=== PATIENT | female | born 1935 | race Caucasian/White ===

== ENCOUNTER 2020-03-11 16:29 | Emergency (ER) | payer MEDICARE, OTHER, SELFPAY ==
[2020-03-11 17:45] VITALS: BP 139/68; PULSE 78; RESP 16; TEMP 37.1; O2SAT 100; BMI 23.0
--- NOTE | 2020-03-11 17:55 | ED.ANIMALBIT ---
HPI - Animal Bite General Chief Complaint: Animal Bite Stated Complaint: cat scratch Time Seen by Provider: 03/11/20 17:55 Source: patient Mode of arrival: ambulatory History of Present Illness HPI narrative: patient presents with multiple wounds the left hand from a cat bite and scratches. Her cat and her daughter's cat were not getting along they got into a fight, and patient was injured while the animals. She has multiple puncture wounds to the left hand forearm and a 0.5 cm laceration to left forearm unknown if it was caused from a bite or a cat scratch. Both cats vaccinated, patient does not report any other injuries. MD complaint: animal bite Onset (ago): hour(s) Animal: cat Description of animal: household pet Mechanism: bite and scratch Location - Extremities: left: arm and hand Severity scale (1-10): 2 Context: animals fighting Associated symptoms: none Treatments prior to arrival: irrigation Related Data Patient tetanus UTD: No Previous Rx's Medication Instructions Recorded doxycycline monohydrate 100 mg PO BID 10 Days #20 cap 03/11/20 Allergies Allergy/AdvReac Type Severity Reaction Status Date / Time amoxicillin [From Augmentin] Allergy Flushing Verified 03/11/20 17:54 clavulanic acid Allergy Flushing Verified 03/11/20 17:54 [From Augmentin] Sulfa (Sulfonamide Allergy Unknown Verified 03/11/20 17:54 Antibiotics) Review of Systems Review of Systems: Yes all other systems are reviewed and are negative Constitutional: Constitutional: Reports no additional constitutional complaints Musculoskeletal: Musculoskeletal: Reports no additional musculoskeletal complaints Integumentary/Breasts: Skin/Breast: Reports wounds Comments: 0.5 cm superficial laceration from a bite or scratch on the left forearm, multiple puncture wounds to the left forearm and hand Neurologic: Reports system reviewed and no additional complaints, except as documented Hematologic/Lymphatic: Hematologic/Lymphatic: Reports no additional hematologic/lymphatic complaints PMFSH Past Medical History Attestation statement: The following information was validated with the patient. 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 High cholesterol Social History Social History Advance Directives: No Advance Directives Information Provided: No Physical Exam Vital Signs and I&O and Narrative: Vital Signs and I&O: Vital Signs Temp 98.7 F 03/11/20 17:45 Pulse 78 03/11/20 17:45 Resp 16 03/11/20 17:45 BP 139/68 03/11/20 17:45 Pulse Ox 100 03/11/20 17:45 Intake & Output 03/10/20 03/11/20 03/11/20 18:59 06:59 18:59 Weight 60.781 kg Body Mass Index 23.0 Const: General: cooperative, healthy appearing, comfortable, no acute distress and well developed Nutritional Appearance: average body habitus Orientation/consciousness: patient oriented x3 Limitations: no limitations HENMT: Head: Yes normal to inspection Ears: hearing grossly normal bilaterally Eyes: General: appearance normal, both eyes and all related structures Neck: Neck: Yes normal visual inspection Resp: Effort & Inspection: normal respiratory effort and able to speak in complete sentences Cardio: Rate: regular rate Rhythm: regular rhythm Skin: Wounds: wounds noted ( 0.5 cm laceration to the left forearm, multiple puncture wounds from bite) Neuro: General: patient oriented x3 Cognition (Neuro): normal cognition Motor exam (neuro): 5/5 motor strength present throughout Extrem: General: Yes normal to inspection and Yes full ROM Right upper extremity: normal to inspection and full ROM Left upper extremity: full ROM and normal capillary refill Right lower extremity: normal to inspection Left lower extremity: normal to inspection Psych: Appearance: grossly normal Mental Status: mental status grossly normal Course Course Hospital Course: plan is to wash wounds and apply singular Steri-Strips to the laceration. Cleaned with Betadine and normal saline. Patient tolerated procedure well. Patient is allergic to Augmentin, plan is to give doxycycline for 10 days, patient is aware of the photosensitivity with doxycycline. Patient verbalized understanding of and agrees to plan of care discharge home. Discharge Plan Discharge Clinical Impression: Bite by animal, Laceration Cat bite Qualifiers: Encounter type: initial encounter Qualified Code(s): W55.01XA - Bitten by cat, initial encounter Patient Disposition: Home, Self-Care Instructions: Animal Bite (ED), Laceration (ED), Acute Wounds (ED) Additional Instructions: please follow-up with primary care physician as needed. Return to the emergency department for any new, concerning, worsening symptoms. Prescriptions: New doxycycline monohydrate 100 mg capsule 100 mg PO BID 10 Days Qty: 20 RF: 0
== END 2020-03-11 20:35 | disposition home or self-care (01) ==
PROVIDERS: Emergency Provider Emergency Medicine Emergency Medical Services
DX: S51.852A Open bite of left forearm, initial encounter (principal); S61.452A Open bite of left hand, initial encounter; W55.01XA Bitten by cat, initial encounter; Y93.9 Activity, unspecified; Y92.019 Unspecified place in single-family (private) house as the place of occurrence of the external cause; Y99.9 Unspecified external cause status
CPT/HCPCS: 90471; 99284

== ENCOUNTER 2021-04-15 12:58 | Emergency (ER) | payer MEDICARE, OTHER, SELFPAY ==
--- NOTE | ~2021-04-15 | XR_ITS ---
EXAMINATION: XR FINGER, LEFT CLINICAL INFORMATION: Cat bite to the middle finger COMPARISON: None TECHNIQUE: 3 views of the left hand third digit. FINDINGS: No fracture or dislocation. Alignment is anatomic. Mild joint space narrowing throughout the interphalangeal joints. No acute erosion. The soft tissues are unremarkable. No foreign body. XR/XR finger LT min 2V IMPRESSION: No acute abnormality. Mild degenerative changes throughout the interphalangeal joints.
[2021-04-15 13:01] VITALS: BP 143/62; PULSE 72; RESP 18; TEMP 36.1; O2SAT 96; BMI 23.1
--- NOTE | 2021-04-15 13:53 | ED_ITS ---
HPI - Animal Bite General Chief Complaint: Animal Bite Stated Complaint: cat bite Time Seen by Provider: 04/15/21 13:48 Source: patient and family Mode of arrival: ambulatory Limitations: no limitations History of Present Illness MD complaint: animal bite Onset (ago): minute(s) (Prior to arrival) Animal: cat Description of animal: household pet Mechanism: bite Location - Extremities: left: hand (Middle finger) Pain description: other (Patient denies any pain) Context: other (The neighbor's cat came over and tried to attack the patient's Cat and the patient tried to intervene and her Cat bit her) Associated symptoms: none Treatments prior to arrival: irrigation Related Data Patient tetanus UTD: Yes (She received on 03/11/2020) Previous Rx's Medication Instructions Recorded doxycycline monohydrate 100 mg 100 mg PO BID 10 Days #20 cap 03/11/20 capsule doxycycline hyclate 100 mg tablet 100 mg PO BID 10 Days #20 tab 04/15/21 metronidazole 500 mg tablet 500 mg PO TID 10 Days #30 tab 04/15/21 Allergies Allergy/AdvReac Type Severity Reaction Status Date / Time amoxicillin [From Augmentin] Allergy Flushing Verified 03/11/20 17:54 clavulanic acid Allergy Flushing Verified 03/11/20 17:54 [From Augmentin] Sulfa (Sulfonamide Allergy Unknown Verified 03/11/20 17:54 Antibiotics) Review of Systems Review of Systems: Constitutional : No Fever, No Chills, Cardiovascular : No Chest Pain, No SOB Respiratory : No Dyspnea Gastrointestinal : No abdominal pain Musculoskeletal : No Joint Swelling Skin : positive puncture wound to left middle finger, no skin laceration, No Foreign bodies, No rash, No surrounding erythema Neuro : No Weakness, No Numbness/tingling Psych : No SI/HI/thoughts of self injury Yes all other systems are reviewed and are negative PMFSH Past Medical History Attestation statement: The following information was validated with the patient. 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 Blood pressure normal Heart rate normal. Respiration rate normal. Temperature nor mal. Oxygen saturation normal. Appearance: Alert. Oriented X3. No acute distress. Head: Normal external exam. Normocephalic. Atraumatic. Eyes: PERRLA. EOMI. Conjunctiva and sclera normal. Eyelids normal. ENT: Pharynx normal. Uvula midline. Moist mucous membranes. Neck: Normal inspection. Neck supple. FROM. CVS: Normal heart rate and rhythm. Respiratory: No respiratory distress. Painless inspiration. Skin: Skin warm and dry. Normal skin color. Normal skin turgor. To left middle finger at the mid aspect patient has 1 puncture wound to the dorsal and 1 puncture wound to the palmar aspect no surrounding erythema/streaking/induration/fluctuance or foreign bodies noted. Patient has full range of motion of all fingers/hand and wrist not consistent with ten osynovitis. No signs of infection at this time. Otherwise no additional rashes/lesions/lacerations noted. Extremities: Extremities exhibit normal range of motion. Extremities nontender. Neuro: Oriented X 3. No motor deficit. No sensory deficit. Reflexes normal. Normal steady gait. No focal neuro deficits noted. Vascular: + radial pulses Normal cap refill. No cyanosis noted to upper extr emity nails Course Course Course Narrative: 85-year-old female presenting to the ED after she was bit by her cat while the neighbor's cat try to attack her cat. She is up-to-date on her tetanus she received it on her last visit here on 03/11/2020. Will obtain an x-ray to evaluate for possible foreign bodies if negative will DC home with antibiotics she is allergic to amoxicillin/Augmentin therefore will place her on doxy and Flagyl and instructions return if any new or worsening symptoms follow- up with primary care provider. Patient understands agrees with this plan. MDM - Animal Bite Medical Records Attestation: I reviewed the patient's medical records. Imaging Data Left middle finger x-ray: Attestation: I personally reviewed and interpreted this imaging study as follows: Radiologist's impression: FINDINGS: No fracture or dislocation. Alignment is anatomic. Mild joint space narrowing throughout the interphalangeal joints. No acute erosion. The soft tissues are unremarkable. No foreign body.? XR/XR finger LT min 2V IMPRESSION: No acute abnormality. 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
--- NOTE | 2021-04-15 14:43 | PC.NURSE ---
this rn faxed to [facility] at patient request.
== END 2021-04-15 14:44 | disposition home or self-care (01) ==
PROVIDERS: Emergency Provider Emergency Medicine
DX: S61.452A Open bite of left hand, initial encounter (principal); W55.01XA Bitten by cat, initial encounter; Y93.89 Activity, other specified; Y92.9 Unspecified place or not applicable; Y99.9 Unspecified external cause status
CPT/HCPCS: 73140; 99283

== ENCOUNTER 2022-10-18 11:06 | Emergency (ER) | payer MEDICARE, OTHER, SELFPAY ==
--- NOTE | ~2022-10-18 | CT_ITS ---
EXAMINATION: CT THORACIC SPINE WITHOUT CONTRAST CT LUMBAR SPINE WITHOUT CONTRAST CLINICAL INFORMATION: Status post fall. History of recent kyphoplasty. COMPARISON: No relevant prior imaging. TECHNIQUE: [employer] images were obtained. CT imaging of the thoracic and lumbar spine was performed without contrast. Data was reformatted into multiplanar images at the acquisition workstation. FINDINGS: There are compression deformities of the T12 and L1 vertebral bodies. Specifically at T12 there is impaction of the upper endplate resulting in 40% vertebral height loss centrally. At L1 there is impaction of the upper and lower endplates resulting in 50% vertebral height loss centrally. There is buckling with retropulsion of the posterior cortex at each of these 3 levels causing indentation of the ventral thecal sac. There is bone cement material within the vertebral bodies at each of these levels consistent with the clinical history of a recent kyphoplasty. Otherwise no evidence of acute fracture elsewhere within the onmnu-nh-gvhi of this examination. There is a slight anterolisthesis of L4 on L5 and L5 on S1 related to advanced facet degenerative changes at each of these 2 levels. Alignment is otherwise grossly maintained in the sagittal dimension. Canal patency is not well assessed on this examination due to inherent limitations of CT without intrathecal contrast. There is at least moderate canal stenosis at the level of T12. Otherwise no canal compromise within the thoracic spine. Bulging disc in conjunction with facet degenerative change causes at least moderate canal stenosis at levels of L3-L4 and L4-L5. Grossly no evidence of foraminal nerve root compression. Limited visualization of intrathoracic anatomy reveals no abnormal finding. There is scattered atheromatous calcification involving abdominal aorta and iliac vessels. Psoas and paraspinal muscle groups are grossly symmetric. Of note there is a spinal stimulator in place with electrode traversing the right S3 foramen. CT/CT thoracic spine wo IV con IMPRESSION: There are compression deformities of the T12 and L1 vertebral bodies that appear to have been treated with kyphoplasty. Otherwise no evidence of acute fracture. Canal patency is not well assessed on this examination due to inherent limitations of CT without intrathecal contrast. There is at least moderate canal stenosis at T12, L3-L4, and L4-L5 related to multiple factors as described above. If there are clinical symptoms of compressive myelopathy then a dedicated lumbar spine MRI can be obtained for better anatomic characterization of the cord and canal. There is multilevel degenerative spondylosis of the lumbar spine with slight anterolisthesis of L4 on L5 and L5 on S1 related to facet degenerative changes at each of these 2 levels.
--- NOTE | ~2022-10-18 | CT_ITS ---
EXAMINATION: CT CERVICAL SPINE WITHOUT CONTRAST CLINICAL INFORMATION: Full COMPARISON: None available. TECHNIQUE: CT cervical spine with coronal and sagittal reconstructions This CT examination was performed using dose optimization techniques as appropriate, variously including the following: *Automated exposure control *Adjustment of mA and/or kV according to patient size (this includes techniques or standardized protocols for targeted exams where dose is matched to indication/reason for exam; i.e. extremities or head) *Use of iterative reconstruction technique DLP: 260 mGy-cm FINDINGS: No abnormal prevertebral soft tissue swelling is seen. The paraspinal muscle fat planes are maintained. No acute cervical spine fracture is noted. There is degenerative narrowing of the disc spaces C4-C7. There is some mild spurring of the joints of [place] causing some anterior neural foraminal encroachment C4-C7. Pterygoid plates intact. Visualized paranasal sinuses and mastoid air cells unremarkable. There is some mild flattening with irregularity of the temporomandibular joints bilaterally without significant joint space narrowing. No apical lung lesion identified. CT/CT cervical spine wo IV con IMPRESSION: Cervical spondylosis without acute fracture. Fleischner guidelines were followed.
--- NOTE | ~2022-10-18 | CT_ITS ---
EXAMINATION: CT HEAD WITHOUT CONTRAST CLINICAL INFORMATION: Fall on anticoagulant COMPARISON: None available. TECHNIQUE: Contiguous axial imaging was performed from the skull base to vertex without intravenous administration of contrast. This CT examination was performed using dose optimization techniques as appropriate, variously including the following: *Automated exposure control *Adjustment of mA and/or kV according to patient size (this includes techniques or standardized protocols for targeted exams where dose is matched to indication/reason for exam; i.e. extremities or head) *Use of iterative reconstruction technique DLP: 640 mGy-cm FINDINGS: No intracranial hemorrhage is identified. No significant mass effect or midline structure shift is seen. No abnormal extra-axial fluid collection is noted. There is prominence of ventricles, sulci, and cisterns consistent with generalized atrophy. There is some periventricular white matter low density seen consistent with microangiopathy. There are small lacunar infarcts seen involving the anterior limbs of both internal capsules. There is a region of diminished density within the óscar which may represent previous infarct. There appears be gas about the anterior aspect of the globe bilaterally which may represent postsurgical change of intraorbital temporal. Pterygoid plates intact. Degenerative change of the right temporomandibular joint. Visualized paranasal sinuses and mastoid air cells unremarkable. CT/CT head/brain wo IV con IMPRESSION: No acute intracranial pathology. Findings consistent with microangiopathy. Question old óscar infarct.
--- NOTE | ~2022-10-18 | CT_ITS ---
EXAMINATION: CT THORACIC SPINE WITHOUT CONTRAST CT LUMBAR SPINE WITHOUT CONTRAST CLINICAL INFORMATION: Status post fall. History of recent kyphoplasty. COMPARISON: No relevant prior imaging. TECHNIQUE: Vault Clerk images were obtained. CT imaging of the thoracic and lumbar spine was performed without contrast. Data was reformatted into multiplanar images at the acquisition workstation. FINDINGS: There are compression deformities of the T12 and L1 vertebral bodies. Specifically at T12 there is impaction of the upper endplate resulting in 40% vertebral height loss centrally. At L1 there is impaction of the upper and lower endplates resulting in 50% vertebral height loss centrally. There is buckling with retropulsion of the posterior cortex at each of these 3 levels causing indentation of the ventral thecal sac. There is bone cement material within the vertebral bodies at each of these levels consistent with the clinical history of a recent kyphoplasty. Otherwise no evidence of acute fracture elsewhere within the [id number] of this examination. There is a slight anterolisthesis of L4 on L5 and L5 on S1 related to advanced facet degenerative changes at each of these 2 levels. Alignment is otherwise grossly maintained in the sagittal dimension. Canal patency is not well assessed on this examination due to inherent limitations of CT without intrathecal contrast. There is at least moderate canal stenosis at the level of T12. Otherwise no canal compromise within the thoracic spine. Bulging disc in conjunction with facet degenerative change causes at least moderate canal stenosis at levels of L3-L4 and L4-L5. Grossly no evidence of foraminal nerve root compression. Limited visualization of intrathoracic anatomy reveals no abnormal finding. There is scattered atheromatous calcification involving abdominal aorta and iliac vessels. Psoas and paraspinal muscle groups are grossly symmetric. Of note there is a spinal stimulator in place with electrode traversing the right S3 foramen. CT/CT lumbar spine wo IV con IMPRESSION: There are compression deformities of the T12 and L1 vertebral bodies that appear to have been treated with kyphoplasty. Otherwise no evidence of acute fracture. Canal patency is not well assessed on this examination due to inherent limitations of CT without intrathecal contrast. There is at least moderate canal stenosis at T12, L3-L4, and L4-L5 related to multiple factors as described above. If there are clinical symptoms of compressive myelopathy then a dedicated lumbar spine MRI can be obtained for better anatomic characterization of the cord and canal. There is multilevel degenerative spondylosis of the lumbar spine with slight anterolisthesis of L4 on L5 and L5 on S1 related to facet degenerative changes at each of these 2 levels.
[2022-10-18 12:03] VITALS: BP 139/65; PULSE 81; RESP 18; TEMP 36.6; O2SAT 97; BMI 21.0
--- NOTE | 2022-10-18 12:05 | ED.FALL ---
HPI - Fall General Chief Complaint: Back Pain/Injury <SORAYA Joseph - Last Filed: 10/18/22 12:11> Stated Complaint: Back Pain S/P Fall 10/18/22 <SORAYA Joseph - Last Filed: 10/18/22 12:11> Time Seen by Provider: 10/18/22 14:55 <SORAYA Joseph - Last Filed: 10/18/22 12:11> Source: patient <Kristin Gambino NP - Last Filed: 10/18/22 17:17> Mode of arrival: ambulatory <Kristin Gambino NP - Last Filed: 10/18/22 17:17> History of Present Illness HPI Narrative: This is an 87-year-old female who has a history DVTs on Eliquis, mild memory loss who presents to the emergency room with concern for lower back pain. Per patient she had a slip and fall this morning out of bed living on her buttocks. Per daughter the patient had a fall 3 weeks ago with subsequent compression fractures requiring kyphoplasty. She has been taking tramadol p.r.n. at home which has been helping her pain. Patient reports now has some worsened pain in her lower back after the fall. There is no radiation of pain. No numbness or tingling or weakness in lower extremities. No numbness in the groin. She does have bladder retention and incontinence at baseline and has to straight cath herself. She has no reports of bowel incontinence or fevers or chills. Patient is ambulatory. Patient unsure if she hit her head. <Kristin Gambino NP - Last Filed: 10/18/22 17:17> Related Data Home Medications: Previous Rx's Medication Instructions Recorded doxycycline monohydrate 100 mg 100 mg PO BID 10 days #20 caps 03/11/20 capsule doxycycline hyclate 100 mg tablet 100 mg PO BID Cat bite 10 days #20 04/15/21 tabs metronidazole 500 mg tablet 500 mg PO TID 10 days #30 tabs 04/15/21 Lactobacillus rhamnosus GG 15 1 cap PO DAILY #20 caps 04/18/21 billion cell sprinkle capsule (Culturelle) clindamycin HCl 300 mg capsule 300 mg PO TID 7 days #21 caps 04/18/21 <SORAYA Joseph - Last Filed: 10/18/22 12:11> Allergies/Adverse Reactions: Allergies Allergy/AdvReac Type Severity Reaction Status Date / Time amoxicillin [From Augmentin] Allergy Flushing Verified 03/11/20 17:54 clavulanic acid Allergy Flushing Verified 03/11/20 17:54 [From Augmentin] Sulfa (Sulfonamide Allergy Unknown Verified 03/11/20 17:54 Antibiotics) <SORAYA Joseph - Last Filed: 10/18/22 12:11> Review of Systems Review of Systems: Yes all other systems are reviewed and are negative <Kristin Gambino NP - Last Filed: 10/18/22 17:17> Constitutional: Constitutional: Reports no additional constitutional complaints, Denies body ache(s), Denies chills, Denies fever(s), Denies headache(s) and Denies weakness <Kristin Gambino NP - Last Filed: 10/18/22 17:17> Eyes: Eyes: Reports no additional eye complaints and Denies change in vision <Kristin Gambino CONSTRUCTION SUPERVISOR/CARPENTER - Last Filed: 10/18/22 17:17> ENT: Reports system reviewed and no additional complaints, except as documented, Denies dizziness, Denies headache(s), Denies nasal congestion, Denies nasal discharge and Denies neck pain <Kristin Gambino NP - Last Filed: 10/18/22 17:17> Cardiovascular: Cardiovascular: Reports no additional cardiovascular complaints, Denies chest pain, Denies leg edema and Denies dyspnea <Kristin Gambino NP - Last Filed: 10/18/22 17:17> Respiratory: Respiratory: Reports no additional respiratory complaints, Denies cough and Denies dyspnea <Kristin Gambino NP - Last Filed: 10/18/22 17:17> Gastrointestinal: Gastrointestinal: Reports no additional gastrointestinal complaints, Denies abdominal pain, Denies diarrhea, Denies nausea and Denies vomiting <Kristin Gambino NP - Last Filed: 10/18/22 17:17> Genitourinary: Genitourinary: Reports no additional female genitourinary complaints and Denies urinary incontinence <Kristin Gambino NP - Last Filed: 10/18/22 17:17> Musculoskeletal: Musculoskeletal: Reports no additional musculoskeletal complaints, Reports back pain, Denies arthralgias, Denies joint swelling, Denies neck pain, Denies numbness and Denies tingling <Kristin Gambino NP - Last Filed: 10/18/22 17:17> Integumentary/Breasts: Skin/Breast: Reports system reviewed and no additional complaints, except as docu and Denies rash <Kristin Gambino NP - Last Filed: 10/18/22 17:17> Neurologic: Reports system reviewed and no additional complaints, except as documented, Denies Abnormal speech present, Denies dizziness, Denies headache(s), Denies numbness, Denies tingling and Denies weakness <Kristin Gambino NP - Last Filed: 10/18/22 17:17> PMFSH Past Medical History Attestation statement: The following information was validated with the patient. <Kristin Gambino NP - Last Filed: 10/18/22 17:17> Source: old records reviewed and nursing notes reviewed <Kristin Gambino NP - Last Filed: 10/18/22 17:17> Medical History: Medical History Blood clot in vein High cholesterol <SORAYA Joseph - Last Filed: 10/18/22 12:11> Social History Social History: Social History Advance Directives: No Advance Directives Information Provided: No <SORAYA Joseph - Last Filed: 10/18/22 12:11> Physical Exam Vital Signs: Vital Signs: Last Vital Signs Temp 97.9 F 10/18/22 12:03 Pulse 81 10/18/22 12:03 Resp 18 10/18/22 12:03 BP 139/65 10/18/22 12:03 Pulse Ox 97 10/18/22 12:03 O2 Del Method Room Air 10/18/22 12:03 BMI result Body Mass Index 21.0 <SORAYA Joseph - Last Filed: 10/18/22 12:11> Vital Signs: Last Vital Signs Temp 97.9 F 10/18/22 12:03 Pulse 81 10/18/22 12:03 Resp 18 10/18/22 12:03 BP 139/65 10/18/22 12:03 Pulse Ox 97 10/18/22 12:03 O2 Del Method Room Air 10/18/22 12:03 BMI result Body Mass Index 21.0 <Kristin Gambino NP - Last Filed: 10/18/22 17:17> Const: General: cooperative, healthy appearing, comfortable and no acute distress <Kristin Gambino CONSTRUCTION SUPERVISOR/CARPENTER - Last Filed: 10/18/22 17:17> Orientation/consciousness: patient oriented x3 <Kristin Gambino CONSTRUCTION SUPERVISOR/CARPENTER - Last Filed: 10/18/22 17:17> Limitations: no limitations <Kristin Gambino CONSTRUCTION SUPERVISOR/CARPENTER - Last Filed: 10/18/22 17:17> HEENT: Head: Yes normal to inspection <Kristin Gambino CONSTRUCTION SUPERVISOR/CARPENTER - Last Filed: 10/18/22 17:17> Ears: hearing grossly normal bilaterally <Kristin Gambino CONSTRUCTION SUPERVISOR/CARPENTER - Last Filed: 10/18/22 17:17> General nose exam: Normal external nose present <Kristin Gambino CONSTRUCTION SUPERVISOR/CARPENTER - Last Filed: 10/18/22 17:17> Face and sinus: Yes normal facial exam <Kristin Gambino CONSTRUCTION SUPERVISOR/CARPENTER - Last Filed: 10/18/22 17:17> Mouth: Normal oral and palatal mucosa present <Kristin Gambino CONSTRUCTION SUPERVISOR/CARPENTER - Last Filed: 10/18/22 17:17> Throat: Yes posterior oropharynx normal <Kristin Gambino CONSTRUCTION SUPERVISOR/CARPENTER - Last Filed: 10/18/22 17:17> Eyes: General: appearance normal, both eyes and all related structures <Kristin Gambino CONSTRUCTION SUPERVISOR/CARPENTER - Last Filed: 10/18/22 17:17> Pupils: Equal, round and reactive pupils present <Kristin Gambino CONSTRUCTION SUPERVISOR/CARPENTER - Last Filed: 10/18/22 17:17> Neck: Neck: Yes normal visual inspection <Kristin Gambino CONSTRUCTION SUPERVISOR/CARPENTER - Last Filed: 10/18/22 17:17> Chest: Chest palpation & inspection: normal inspection of the chest <Kristin Gambino CONSTRUCTION SUPERVISOR/CARPENTER - Last Filed: 10/18/22 17:17> Resp: Effort & Inspection: normal respiratory effort <Kristin Gambino CONSTRUCTION SUPERVISOR/CARPENTER - Last Filed: 10/18/22 17:17> Auscultation: clear to auscultation bilaterally <Kristin Gambino CONSTRUCTION SUPERVISOR/CARPENTER - Last Filed: 10/18/22 17:17> Cardio: Rate: regular rate <Kristin Gambino CONSTRUCTION SUPERVISOR/CARPENTER - Last Filed: 10/18/22 17:17> Rhythm: regular rhythm <Kristin Gambino CONSTRUCTION SUPERVISOR/CARPENTER - Last Filed: 10/18/22 17:17> Peripheral pulses: Peripheral pulses 2+ throughout <Kristin Gambino CONSTRUCTION SUPERVISOR/CARPENTER - Last Filed: 10/18/22 17:17> GI: Inspection: Yes normal to inspection <Kristin Gambino CONSTRUCTION SUPERVISOR/CARPENTER - Last Filed: 10/18/22 17:17> Palpation (GI): Soft to palpation and nontender <Kristin Gambino CONSTRUCTION SUPERVISOR/CARPENTER - Last Filed: 10/18/22 17:17> Auscultation: normal bowel sounds <Kristin Gambino CONSTRUCTION SUPERVISOR/CARPENTER - Last Filed: 10/18/22 17:17> Back/Spine/Pelvis: Other: Mild tenderness the midline lumbar spine with no step-offs or deformities <Kristin Gambino CONSTRUCTION SUPERVISOR/CARPENTER - Last Filed: 10/18/22 17:17> Thoracic/Lumbar Spine: thoracic and lumbar spine normal to inspection <Kristin Gambino CONSTRUCTION SUPERVISOR/CARPENTER - Last Filed: 10/18/22 17:17> Skin: General skin exam: no rashes or lesions noted <Kristin Gambino CONSTRUCTION SUPERVISOR/CARPENTER - Last Filed: 10/18/22 17:17> Neuro: General: patient oriented x3, moves all extremities, no focal motor deficits and normal sensation to monofilament <Kristin Gambino CONSTRUCTION SUPERVISOR/CARPENTER - Last Filed: 10/18/22 17:17> Cranial nerves: Yes CN's II-XII intact bilaterally, Yes Equal, round and reactive pupils present, Yes Bilaterally intact EOM present, Yes Nystagmus not present, Yes Normal facial strength present and Yes Midline tongue present <Kristin Niyahcci, CONSTRUCTION SUPERVISOR/CARPENTER - Last Filed: 10/18/22 17:17> Cognition (Neuro): normal cognition <Kristin Niyahcci, CONSTRUCTION SUPERVISOR/CARPENTER - Last Filed: 10/18/22 17:17> Speech: No Abnormal speech present <Kristin Dongcucci, CONSTRUCTION SUPERVISOR/CARPENTER - Last Filed: 10/18/22 17:17> Gait exam (Neuro): Normal gait present <Kristin Dongcucci, CONSTRUCTION SUPERVISOR/CARPENTER - Last Filed: 10/18/22 17:17> Motor exam (neuro): 5/5 motor strength present throughout <Kristin Pascucci, CONSTRUCTION SUPERVISOR/CARPENTER - Last Filed: 10/18/22 17:17> Sensory Exam: Normal double simultaneous stimulation for sensation <Kristin Niyahcci, CONSTRUCTION SUPERVISOR/CARPENTER - Last Filed: 10/18/22 17:17> Extrem: General: Yes normal to inspection <Kristin Dongmerry, CONSTRUCTION SUPERVISOR/CARPENTER - Last Filed: 10/18/22 17:17> Course Course Course Narrative: RME - 87 y/o female with history of LE DVT on Eliquis presents to the ER from home for evaluation of low back pain s/p unwitnessed fall out of bed this morning. She states she fell when she got out of bed and fell onto her bottom, no LOC or head strike. She had recent kyphoplasty to compression fx in thoracic and lumbar spine in [place] a couple of weeks ago. Reports worsening lumbar pain since the fall. Plan: CT head/c-spine given age and anticoagulation along with thoracic and lumbar spines to assess for additional compression deformitites <SORAYA Joseph - Last Filed: 10/18/22 12:11> Reevaluation(s) Reevaluation #1: [id number] IMPRESSION: There are compression deformities of the T12 and L1 vertebral bodies that appear to have been treated with kyphoplasty. Otherwise no evidence of acute fracture. Canal patency is not well assessed on this examination due to inherent limitations of CT without intrathecal contrast. There is at least moderate canal stenosis at T12, L3-L4, and L4-L5 related to multiple factors as described above. If there are clinical symptoms of compressive myelopathy then a dedicated lumbar spine MRI can be obtained for better anatomic characterization of the cord and canal. There is multilevel degenerative spondylosis of the lumbar spine with slight anterolisthesis of L4 on L5 and L5 on S1 related to facet degenerative changes at each of these 2 levels. -reviewed findings with the patient and family. UA negative for infection. Patient is feeling good pain control with her home tramadol. Able to ambulate. Reviewed worrisome signs and symptoms of when to return to the emergency room. Comfortable plan for discharge home. <Kristin Gambino NP - Last Filed: 10/18/22 17:17> Medications Administered Discontinued Medications Generic Name Dose Route Start Last Admin Trade Name Freq PRN Reason Stop Dose Admin Tramadol HCl 50 mg 10/18/22 15:20 10/18/22 15:41 Tramadol Hcl 50 Mg Tablet PO 10/18/22 15:21 50 mg ONCE ONE Administration <SORAYA Joseph - Last Filed: 10/18/22 12:11> Medications Administered Discontinued Medications Generic Name Dose Route Start Last Admin Trade Name Freq PRN Reason Stop Dose Admin Tramadol HCl 50 mg 10/18/22 15:20 10/18/22 15:41 Tramadol Hcl 50 Mg Tablet PO 10/18/22 15:21 50 mg ONCE ONE Administration <Kristin Gambino NP - Last Filed: 10/18/22 17:17> Medical Decision Making Medical Decision Making [facility] Narrative: 87-year-old female here with lower back pain after mechanical fall this morning. Of note, patient with recent kyphoplasty due to compression fractures. Patient is unsure if she had a hitting of the head or loss of consciousness as she has mild memory loss at baseline. Normal neuro exam Mild tenderness to the lumbar mid spine Patient had CT head, CT cervical spine, CT thoracic spine, CT lumbar spine ordered from triage Will order pain control Daughter is concerned that patient may have urinary tract infection. She does self cath at home. Will obtain UA <Kristin Gambino NP - Last Filed: 10/18/22 17:17> Differential Diagnosis Differential Diagnoses: The differential diagnosis associated with the presentation includes <Kristin Gambino NP - Last Filed: 10/18/22 17:17> Fracture, contusion <Kristin Gambino NP - Last Filed: 10/18/22 17:17> Lab Data [facility] Lab Attestation statement: I reviewed the patient's lab results. <Kristin Gambino NP - Last Filed: 10/18/22 17:17> Labs: Lab Results 10/18/22 Range/Units 16:00 Urine Color Yellow Urine Appearance Clear Urine pH 5.5 (5.0-9.0) Ur Specific [place] 1.025 (1.005-1.025) Urine Protein Negative (Neg-Trace) mg/dL Urine Glucose (UA) Negative (Negative) mg/dL Urine Ketones Trace (Negative) mg/dL Urine Blood Negative (Negative) Urine Nitrite Negative (Negative) Ur Leukocyte Esterase Small (1+) H (Negative) Urine RBC 3-5 H (0-2) /HPF Urine WBC 6-10 (0-5) /HPF Ur Squamous Epith Cells 0-2 (0-2) /HPF Urine Bacteria None Seen (None Seen) Hyaline Casts 0-2 (0-2) /LPF <SORAYA Joseph - Last Filed: 10/18/22 12:11> Lab Results 10/18/22 Range/Units 16:00 Urine Color Yellow Urine Appearance Clear Urine pH 5.5 (5.0-9.0) Ur Specific [place] 1.025 (1.005-1.025) Urine Protein Negative (Neg-Trace) mg/dL Urine Glucose (UA) Negative (Negative) mg/dL Urine Ketones Trace (Negative) mg/dL Urine Blood Negative (Negative) Urine Nitrite Negative (Negative) Ur Leukocyte Esterase Small (1+) H (Negative) Urine RBC 3-5 H (0-2) /HPF Urine WBC 6-10 (0-5) /HPF Ur Squamous Epith Cells 0-2 (0-2) /HPF Urine Bacteria None Seen (None Seen) Hyaline Casts 0-2 (0-2) /LPF <Kristin Gambino NP - Last Filed: 10/18/22 17:17> Independent Interpretation I performed an independent interpretation of an: CT Scan <Kristin Gambino NP - Last Filed: 10/18/22 17:17> Interpretation: I independently reviewed the CT scan agree with radiologist's report <Kristin Gambino NP - Last Filed: 10/18/22 17:17> Radiology Impression Discussion of test interpretation with radiology: I have reviewed the radiologist's reading. <Kristin Gambino NP - Last Filed: 10/18/22 17:17> Radiologist Impression: [id number] [place] [address] CT Scan Report Signed Patient: Velma Uriostegui MR#: [id number] : 1935 Acct:[id number] Age/Sex: 87 / F ADM Date: 10/18/22 Loc: HO.ED Attending Dr: Ordering Physician: Thu Mena Date of Service: 10/18/22 Procedure(s): CT thoracic spine wo IV con Accession Number(s): [id number] cc: Thu Mena~ EXAMINATION: CT THORACIC SPINE WITHOUT CONTRAST CT LUMBAR SPINE WITHOUT CONTRAST CLINICAL INFORMATION: Status post fall. History of recent kyphoplasty. COMPARISON: No relevant prior imaging. TECHNIQUE: Survey Worker images were obtained. CT imaging of the thoracic and lumbar spine was performed without contrast. Data was reformatted into multiplanar images at the acquisition workstation. FINDINGS: There are compression deformities of the T12 and L1 vertebral bodies. Specifically at T12 there is impaction of the upper endplate resulting in 40% vertebral height loss centrally. At L1 there is impaction of the upper and lower endplates resulting in 50% vertebral height loss centrally. There is buckling with retropulsion of the posterior cortex at each of these 3 levels causing indentation of the ventral thecal sac. There is bone cement material within the vertebral bodies at each of these levels consistent with the clinical history of a recent kyphoplasty. Otherwise no evidence of acute fracture elsewhere within the ybfja-[id number] of this examination. There is a slight anterolisthesis of L4 on L5 and L5 on S1 related to advanced facet degenerative changes at each of these 2 levels. Alignment is otherwise grossly maintained in the sagittal dimension. Canal patency is not well assessed on this examination due to inherent limitations of CT without intrathecal contrast. There is at least moderate canal stenosis at the level of T12. Otherwise no canal compromise within the thoracic spine. Bulging disc in conjunction with facet degenerative change causes at least moderate canal stenosis at levels of L3-L4 and L4-L5. Grossly no evidence of foraminal nerve root compression. Limited visualization of intrathoracic anatomy reveals no abnormal finding. There is scattered atheromatous calcification involving abdominal aorta and iliac vessels. Psoas and paraspinal muscle groups are grossly symmetric. Of note there is a spinal stimulator in place with electrode traversing the right S3 foramen. CT/CT thoracic spine wo IV con IMPRESSION: There are compression deformities of the T12 and L1 vertebral bodies that appear to have been treated with kyphoplasty. Otherwise no evidence of acute fracture. Canal patency is not well assessed on this examination due to inherent limitations of CT without intrathecal contrast. There is at least moderate canal stenosis at T12, L3-L4, and L4-L5 related to multiple factors as described above. If there are clinical symptoms of compressive myelopathy then a dedicated lumbar spine MRI can be obtained for better anatomic characterization of the cord and canal. There is multilevel degenerative spondylosis of the lumbar spine with slight anterolisthesis of L4 on L5 and L5 on S1 related to facet degenerative changes at each of these 2 levels. <Kristin Gambino NP - Last Filed: 10/18/22 17:17> Discharge Plan Discharge Clinical Impression: Lumbar contusion <SORAYA Joseph - Last Filed: 10/18/22 12:11> Patient Disposition: Home, Self-Care <SORAYA Joseph - Last Filed: 10/18/22 12:11> Instructions: Contusion in Adults (ED) <SORAYA Joseph - Last Filed: 10/18/22 12:11> Additional Instructions: Your CT scan shows that you had compression fractures in your thoracic and lumbar spine that were treated with kyphoplasty. These appear stable. You have no new fractures. Continue your pain medication at home. Use heat or ice as needed. Urine shows no signs of infection <SORAYA Joseph - Last Filed: 10/18/22 12:11> Prescriptions: No Action doxycycline monohydrate 100 mg capsule 100 mg PO BID 10 Days Qty: 20 0RF doxycycline hyclate 100 mg tablet 100 mg PO BID 10 Days Qty: 20 0RF metronidazole 500 mg tablet 500 mg PO TID 10 Days Qty: 30 0RF clindamycin HCl 300 mg capsule 300 mg PO TID 7 Days Qty: 21 0RF Culturelle 15 billion cell capsule, sprinkle 1 cap PO DAILY Qty: 20 0RF <SORAYA Joseph - Last Filed: 10/18/22 12:11> Referrals: Nedra Sanford MD [Primary Care Provider] - 1 week (as needed) <SORAYA Joseph - Last Filed: 10/18/22 12:11>
[2022-10-18] MEDS: traMADoL HCL 50 MG TABLET PO (15:41)
[2022-10-18 16:10] LABS: Appearance Urine Clear; Color Urine Yellow; Glucose Urine UA Negative (Negative); Leukocyte Esterase Urine Small (1+) (Negative); Nitrite Urine Negative (Negative); PH 5.5 (5.0-9.0); Specific Gravity - Urine 1.025 (1.005-1.025); UMIC TRIGGER UACC YES; Urine Blood Negative (Negative); Urine Ketones Trace mg/dL (Negative); Urine Protein Negative (Neg-Trace)
[2022-10-18 16:23] LABS: Bacteria Urine None Seen (None Seen); Hyaline Casts Urine 0-2 /LPF (0-2); Squamous Epithelial Cell Urine 0-2 /HPF (0-2); UACC Culture Trigger YES
== END 2022-10-18 17:35 | disposition home or self-care (01) ==
PROVIDERS: Nurse Practitioner Family; Emergency Provider Emergency Medicine Emergency Medical Services; PCP Family Medicine
DX: S30.0XXA Contusion of lower back and pelvis, initial encounter (principal); W06.XXXA Fall from bed, initial encounter; N39.0 Urinary tract infection, site not specified; B96.89 Other specified bacterial agents as the cause of diseases classified elsewhere; Y93.89 Activity, other specified; Y92.013 Bedroom of single-family (private) house as the place of occurrence of the external cause; Y99.9 Unspecified external cause status
CPT/HCPCS: 70450; 72125; 72128; 72131; 81001; 87086; 87088; 87186; 99283; 99284

== ENCOUNTER 2022-12-22 14:09 | Inpatient (IN) | payer MEDICARE, OTHER, SELFPAY ==
--- NOTE | ~2022-12-22 | CT_ITS ---
EXAMINATION: CT HEAD WITHOUT CONTRAST CLINICAL INFORMATION: Headache. Confusion. COMPARISON: Head CT from 10/18/2022 TECHNIQUE: Contiguous axial imaging was performed from the skull base to vertex without intravenous administration of contrast. This CT examination was performed using dose optimization techniques as appropriate, variously including the following: *Automated exposure control *Adjustment of mA and/or kV according to patient size (this includes techniques or standardized protocols for targeted exams where dose is matched to indication/reason for exam; i.e. extremities or head) *Use of iterative reconstruction technique DLP: 596 mGy-cm FINDINGS: No intracranial hemorrhage, extra-axial surface collection, focal mass effect or midline shift. There is atherosclerotic calcification of cavernous carotid arteries. Chronic patchy hypoattenuation is present within supratentorial white matter and findings include chronic decreased attenuation within the external capsules. The champagne-white matter differentiation is maintained. No acute major vascular territory infarction. Mild parenchymal volume loss with commensurate prominence of ventricles and sulci; no hydrocephalus. The brainstem and cerebellar hemispheres are unremarkable. The cerebellar tonsils are in normal position. The visualized paranasal sinuses and mastoid air cells are well aerated. No air-fluid levels within paranasal sinuses. Prior paranasal sinus surgery with apparent old maxillary medial wall antrostomies and ethmoidectomies. Temporomandibular joints are unremarkable. CT/CT head/brain wo IV con IMPRESSION: * No acute intracranial pathology compared to 10/18/2022. 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
--- NOTE | ~2022-12-22 | US_ITS ---
EXAMINATION: US ABDOMEN LIMITED CLINICAL INFORMATION: Elevated LFTs. COMPARISON: None available. TECHNIQUE: Real-time imaging of the right upper quadrant abdominal viscera. FINDINGS: Per technologist report, performance of the exam was limited due to limited patient mobility. PANCREAS: The visualized proximal portion of the pancreas is unremarkable. The distal portion is obscured secondary to overlying bowel gas. LIVER: The liver is normal in size. The liver contour is normal. Parenchymal echogenicity is normal. No focal hepatic lesion. There is no intrahepatic biliary duct dilatation seen. GALLBLADDER: The gallbladder is physiologically distended without evidence of stones, sludge, polyps, wall thickening or pericholecystic fluid. Sonographic Delatorre sign is reportedly negative. COMMON BILE DUCT: Normal in caliber measuring 0.6 cm in diameter. RIGHT KIDNEY: Mild fullness of the renal pelvis. No renal calculi or focal parenchymal lesions. The kidney measures 10.1 cm in maximum dimension. FREE FLUID: None. US/US abdomen limited IMPRESSION: Mild fullness of the right renal pelvis, of uncertain clinical significance. Otherwise no acute findings identified.
--- NOTE | ~2022-12-22 | XR_ITS ---
EXAMINATION: XR CHEST CLINICAL INFORMATION: Confusion and weakness. COMPARISON: CT images of spine from 10/18/2022 TECHNIQUE: 2 views of the chest were obtained. FINDINGS: Lungs are well-inflated and clear. Trachea is midline in position. No interstitial disease, consolidation or mass. No pleural effusion or pneumothorax. Cardiac silhouette and pulmonary vessels are normal in size. The mediastinum and martínez have normal contour. Bones appear to be diffusely osteopenic. There has been cement augmentation of the compressed T12 and L1 vertebral bodies. XR/XR chest 2V IMPRESSION: No acute cardiopulmonary abnormality.
--- NOTE | 2022-12-22 07:14 | ECG_ITS ---
Test Reason : WEAKNESS Blood Pressure : / mmHG Vent. Rate : 080 BPM Atrial Rate : 080 BPM P-R Int : 168 ms QRS Dur : 122 ms QT Int : 366 ms P-R-T Axes : 093 035 045 degrees QTc Int : 422 ms Sinus rhythm with Premature supraventricular complexes Non-specific intra-ventricular conduction delay Borderline ECG When compared with ECG of 22-DEC-2022 16:18, Premature supraventricular complexes are now Present Criteria for Septal infarct are no longer Present Referred By: Sony Stroud Electronically Signed By:Miko Vidales
--- NOTE | 2022-12-22 15:13 | ED.GENADULT ---
HPI - General Adult General Chief complaint: General Medical Stated complaint: dehydration Time Seen by Provider: 12/22/22 22:28 Source: patient and family Mode of arrival: ambulatory Limitations: altered mental status History of Present Illness HPI narrative: Not eating all day, she feel full, headache, wants to be in bed all day, nausea. Family is most worried about dehydration. Onset (ago): week(s) Severity: mild Pain Consistency: constant Related Data Previous Rx's Medication Instructions Recorded doxycycline monohydrate 100 mg 100 mg PO BID 10 days #20 caps 03/11/20 capsule doxycycline hyclate 100 mg tablet 100 mg PO BID Cat bite 10 days #20 04/15/21 tabs metronidazole 500 mg tablet 500 mg PO TID 10 days #30 tabs 04/15/21 Lactobacillus rhamnosus GG 15 1 cap PO DAILY #20 caps 04/18/21 billion cell sprinkle capsule (Culturelle) clindamycin HCl 300 mg capsule 300 mg PO TID 7 days #21 caps 04/18/21 cefuroxime axetil 250 mg tablet 250 mg PO BID #14 tabs 10/22/22 Allergies Allergy/AdvReac Type Severity Reaction Status Date / Time amoxicillin [From Augmentin] Allergy Flushing Verified 03/11/20 17:54 clavulanic acid Allergy Flushing Verified 03/11/20 17:54 [From Augmentin] Sulfa (Sulfonamide Allergy Unknown Verified 03/11/20 17:54 Antibiotics) Review of Systems Review of Systems: Yes all other systems are reviewed and are negative Constitutional: Comments: not eating and weakness PMFSH Past Medical History Medical History (Updated 12/23/22 @ 05:48 by Lakesha Cisneros MD) Blood clot in vein High cholesterol History of DVT (deep vein thrombosis) Recurrent UTI Surgical History (Updated 12/23/22 @ 05:47 by Lakesha Cisneros MD) No pertinent past surgical history Social History Social History (Updated 12/23/22 @ 05:47 by Lakesha Cisneros MD) Alcohol intake: current Alcohol intake frequency: a few times a week Alcohol type: wine Patient Tobacco Use Status: Never used Tobacco Smoked in Last 30 Days: No Use of substances other than those prescribed or required for medical reasons: No Advance Directives: No Advance Directives Information Provided: Yes Physical Exam ED Vital Signs: Vital Signs - 24 hr 12/22/22 15:14 07/14/23 23:23 12/23/22 01:05 Temperature 98.2 F 98.6 F 100.8 F H Pulse Rate 88 79 Respiratory Rate 14 16 Blood Pressure 114/64 120/62 Pulse Oximetry 97 97 Oxygen Delivery Method Room Air Room Air 12/23/22 03:34 Temperature 103.1 F H Pulse Rate 108 H Respiratory Rate 18 Blood Pressure 109/55 L Pulse Oximetry 94 Oxygen Delivery Method Room Air BMI result Body Mass Index 19.8 Const Other: elderly frail Nutritional Appearance: thin Orientation/consciousness: oriented to person Limitations: no limitations HENMT Head: Yes normal to inspection Ears: external ears normal General nose exam: Normal external nose present Mouth: Normal oral and palatal mucosa present and oropharynx normal Throat: Yes posterior oropharynx normal Eyes General: appearance normal, both eyes and all related structures Neck Neck: Yes normal visual inspection Chest Chest palpation & inspection: normal inspection of the chest Resp Auscultation: clear to auscultation bilaterally Cardio Jugular venous distension: no JVD Rate: regular rate Rhythm: regular rhythm Heart sounds: S1 normal heart sound present and S2 normal heart sound present GI Inspection: Yes normal to inspection Palpation (GI): Soft to palpation, nontender and No hepatosplenomegaly present Auscultation: normal bowel sounds General: Yes no CVA tenderness Back/Spine/Pelvis Back: no CVA tenderness Skin General skin exam: no rashes or lesions noted Neuro General: oriented to person Cranial nerves: Yes CN's II-XII intact bilaterally Motor exam (neuro): 5/5 motor strength present throughout Extrem General: Yes normal to inspection Psych Appearance: grossly normal Course Course Course Narrative: RME: 87 yo female w/ PMHx sign for DVT, HDL, GERD, dementia, UTI brought in by family d/t decreased PO intake 2ndry to decreased appetite and assoc weakness, dizziness, and confusion. Daughter reports gradual wt loss, refusing to eat/ drink x1 week, abdominal pain, vomiting x1 last week, and MOMIN. Pts daughter admits dementia has worsened & reports difficulty word finding, dec energy. EKG, labs, UA, CXR Full HPI, ROS and PE to be performed by primary ED provider. Reevaluation(s) Reevaluation #1: patient now with fever will get blood cultures and lactic acid Time: 01:27 Reevaluation #2: patient is not septic, despite elevated LFTs, she does have an infected URINE will treat for UTI Time: 04:27 Reevaluation #3: I spent 40 minutes of critical care, with interventions, assessments, speaking to patient, consultants, and family. Time: 05:15 Medications Administered Generic Name Dose Route Start Last Admin Trade Name Freq PRN Reason Stop Dose Admin Lactated Ringer's 1,000 mls @ 80 mls/hr 12/23/22 05:00 12/23/22 06:11 Lr IVCONT 80 mls/hr .[id number] ALEXA Administration Discontinued Medications Generic Name Dose Route Start Last Admin Trade Name Freq PRN Reason Stop Dose Admin Acetaminophen 650 mg 12/23/22 01:09 12/23/22 02:44 Acetaminophen 325 Mg Tablet PO 12/23/22 01:10 Not Given ONCE ONE Acetaminophen 650 mg 12/23/22 01:55 12/23/22 02:44 Acetaminophen Supp 650 Mg Supp.Rect VT 12/23/22 01:56 650 mg ONCE ONE Administration Sodium Chloride 1,000 mls @ 500 mls/hr 12/22/22 22:45 12/23/22 01:46 Ns IVCONT 12/23/22 00:44 Infused .Q2H ALEXA Infusion Ceftriaxone Sodium 1 gm/ 50 mls @ 100 mls/hr 12/23/22 04:16 12/23/22 06:55 Sodium Chloride IV 12/23/22 04:45 Infused ONCE ONE Infusion Ibuprofen 800 mg 12/23/22 03:40 12/23/22 05:48 Ibuprofen 800 Mg Tablet PO 12/23/22 03:41 Not Given ONCE ONE Medical Decision Making Differential Diagnosis Differential Diagnoses: The differential diagnosis associated with the presentation includes (dehydration, fever, UTI, pneumonia and stroke were all considered) Admission/Observation Consideration of admission/observation: Escalation of care including admission/observation considered (upon arrival this 87 yo female not eating was considered was for admission) Consult Healthcare Provider Management of the patient was discussed with: Hospitalist Lab Data MDM Lab Attestation statement: I reviewed the patient's lab results. (labs were significant for no elevation of WBC, slight dry by elevated BUN, infected UA,) 12/22/22 22:47 12/22/22 22:47 Labs: Lab Results 12/22/22 12/22/22 12/22/22 Range/Units 19:53 22:47 22:47 WBC 7.3 (4.8-10.8) X10*3/uL RBC 3.81 L (4.20-5.50) X10*6/uL Hgb 12.4 (12.0-16.0) g/dl Hct 36.8 L (37.0-47.0) % MCV 96.6 (80.0-98.0) fL MCH 32.5 (27.0-33.0) pg MCHC 33.7 (31.0-35.0) g/dl RDW 13.0 (11.0-16.0) % Plt Count 150 L (160-400) X10*3/uL MPV 9.1 L (9.4-12.3) fL Immature Gran % (Auto) 0.6 H (0.0-0.4) % Neut % (Auto) 71.8 (45-73) % Lymph % (Auto) 11.2 L (20-40) % [place] % (Auto) 15.8 H (2-11) % Eos % (Auto) 0.3 (0-4) % Baso % (Auto) 0.3 (0-2) % Lymph # (Auto) 0.8 L (1.2-4.9) X10*3/uL [place] # (Auto) 1.2 (0.1-1.2) X10*3/uL Eos # (Auto) 0.0 (0.0-0.4) X10*3/uL Baso # (Auto) 0.0 (0.0-0.2) X10*3/uL Abs Immat Gran (auto) 0.04 H (0.00-0.03) X10*3/uL Absolute Neuts (auto) 5.2 (2.0-8.3) x10*3/uL Absolute Nucleated RBC 0.000 (0.0-0.012) X10*3/uL Nucleated RBC % (auto) 0.0 (0.0-0.2) /100WBC PT (10.0-13.1) SEC INR (0.9-1.1) Sodium 131 L (135-145) mmol/L Potassium 4.3 (3.3-5.1) mmol/L Chloride 96 (96-108) mmol/L Carbon Dioxide 26 (22-29) mmol/L Anion Gap 13 (12-20) BUN 19 H (9-16) mg/dL Creatinine 0.86 (0.5-1.4) mg/dL Estim Creat Clear Calc 38.3 Estimated GFR > 60 Random Glucose 102 (60-115) mg/dL Lactic Acid (0.5-2.0) mmol/L Calcium 9.2 (8.4-10.2) mg/dL Magnesium 2.3 (1.6-2.6) mg/dL Total Bilirubin 0.6 (0.0-1.0) mg/dL Direct Bilirubin 0.3 (0.0-0.5) mg/dL AST 112 H (5-31) U/L ALT 229 H (0-31) U/L Alkaline Phosphatase 182 H (39-117) U/L Troponin I High Sens (<3.5-17.0) ng/L Total Protein 6.6 (6.5-8.0) g/dL Albumin 3.6 (3.5-5.0) g/dL Urine Color Yellow Urine Appearance Cloudy Urine pH 6.0 (5.0-9.0) Ur Specific [place] 1.010 (1.005-1.025) Urine Protein 100 (2+) H (Neg-Trace) mg/dL Urine Glucose (UA) Negative (Negative) mg/dL Urine Ketones Negative (Negative) mg/dL Urine Blood Moderate (2+) H (Negative) Urine Nitrite Negative (Negative) Ur Leukocyte Esterase Large (3+) H (Negative) Urine RBC 6-10 H (0-2) /HPF Urine WBC >50 H (0-5) /HPF Ur Squamous Epith Cells 11-20 (0-2) /HPF Urine Bacteria 4+ (None Seen) Hyaline Casts >20 (0-2) /LPF 12/22/22 12/22/22 12/23/22 Range/Units 22:47 22:47 03:45 WBC (4.8-10.8) X10*3/uL RBC (4.20-5.50) X10*6/uL Hgb (12.0-16.0) g/dl Hct (37.0-47.0) % MCV (80.0-98.0) fL MCH (27.0-33.0) pg MCHC (31.0-35.0) g/dl RDW (11.0-16.0) % Plt Count (160-400) X10*3/uL MPV (9.4-12.3) fL Immature Gran % (Auto) (0.0-0.4) % Neut % (Auto) (45-73) % Lymph % (Auto) (20-40) % [place] % (Auto) (2-11) % Eos % (Auto) (0-4) % Baso % (Auto) (0-2) % Lymph # (Auto) (1.2-4.9) X10*3/uL [place] # (Auto) (0.1-1.2) X10*3/uL Eos # (Auto) (0.0-0.4) X10*3/uL Baso # (Auto) (0.0-0.2) X10*3/uL Abs Immat Gran (auto) (0.00-0.03) X10*3/uL Absolute Neuts (auto) (2.0-8.3) x10*3/uL Absolute Nucleated RBC (0.0-0.012) X10*3/uL Nucleated RBC % (auto) (0.0-0.2) /100WBC PT 14.2 H (10.0-13.1) SEC INR 1.2 H (0.9-1.1) Sodium (135-145) mmol/L Potassium (3.3-5.1) mmol/L Chloride (96-108) mmol/L Carbon Dioxide (22-29) mmol/L Anion Gap (12-20) BUN (9-16) mg/dL Creatinine (0.5-1.4) mg/dL Estim Creat Clear Calc Estimated GFR Random Glucose (60-115) mg/dL Lactic Acid 1.6 (0.5-2.0) mmol/L Calcium (8.4-10.2) mg/dL Magnesium (1.6-2.6) mg/dL Total Bilirubin (0.0-1.0) mg/dL Direct Bilirubin (0.0-0.5) mg/dL AST (5-31) U/L ALT (0-31) U/L Alkaline Phosphatase (39-117) U/L Troponin I High Sens 5.9 (<3.5-17.0) ng/L Total Protein (6.5-8.0) g/dL Albumin (3.5-5.0) g/dL Urine Color Urine Appearance Urine pH (5.0-9.0) Ur Specific [place] (1.005-1.025) Urine Protein (Neg-Trace) mg/dL Urine Glucose (UA) (Negative) mg/dL Urine Ketones (Negative) mg/dL Urine Blood (Negative) Urine Nitrite (Negative) Ur Leukocyte Esterase (Negative) Urine RBC (0-2) /HPF Urine WBC (0-5) /HPF Ur Squamous Epith Cells (0-2) /HPF Urine Bacteria (None Seen) Hyaline Casts (0-2) /LPF 12/23/22 Range/Units 03:45 WBC (4.8-10.8) X10*3/uL RBC (4.20-5.50) X10*6/uL Hgb (12.0-16.0) g/dl Hct (37.0-47.0) % MCV (80.0-98.0) fL MCH (27.0-33.0) pg MCHC (31.0-35.0) g/dl RDW (11.0-16.0) % Plt Count (160-400) X10*3/uL MPV (9.4-12.3) fL Immature Gran % (Auto) (0.0-0.4) % Neut % (Auto) (45-73) % Lymph % (Auto) (20-40) % [place] % (Auto) (2-11) % Eos % (Auto) (0-4) % Baso % (Auto) (0-2) % Lymph # (Auto) (1.2-4.9) X10*3/uL [place] # (Auto) (0.1-1.2) X10*3/uL Eos # (Auto) (0.0-0.4) X10*3/uL Baso # (Auto) (0.0-0.2) X10*3/uL Abs Immat Gran (auto) (0.00-0.03) X10*3/uL Absolute Neuts (auto) (2.0-8.3) x10*3/uL Absolute Nucleated RBC (0.0-0.012) X10*3/uL Nucleated RBC % (auto) (0.0-0.2) /100WBC PT (10.0-13.1) SEC INR (0.9-1.1) Sodium (135-145) mmol/L Potassium (3.3-5.1) mmol/L Chloride (96-108) mmol/L Carbon Dioxide (22-29) mmol/L Anion Gap (12-20) BUN (9-16) mg/dL Creatinine (0.5-1.4) mg/dL Estim Creat Clear Calc Estimated GFR Random Glucose (60-115) mg/dL Lactic Acid (0.5-2.0) mmol/L Calcium (8.4-10.2) mg/dL Magnesium (1.6-2.6) mg/dL Total Bilirubin (0.0-1.0) mg/dL Direct Bilirubin (0.0-0.5) mg/dL AST (5-31) U/L ALT (0-31) U/L Alkaline Phosphatase (39-117) U/L Troponin I High Sens (<3.5-17.0) ng/L Total Protein (6.5-8.0) g/dL Albumin (3.5-5.0) g/dL Urine Color Yellow Urine Appearance Cloudy Urine pH 6.5 (5.0-9.0) Ur Specific [place] 1.010 (1.005-1.025) Urine Protein 30 (1+) H (Neg-Trace) mg/dL Urine Glucose (UA) Negative (Negative) mg/dL Urine Ketones Negative (Negative) mg/dL Urine Blood Small (1+) H (Negative) Urine Nitrite Positive H (Negative) Ur Leukocyte Esterase Large (3+) H (Negative) Urine RBC 3-5 H (0-2) /HPF Urine WBC >50 H (0-5) /HPF Ur Squamous Epith Cells 0-2 (0-2) /HPF Urine Bacteria 4+ (None Seen) Hyaline Casts 0-2 (0-2) /LPF Independent Interpretation I performed an independent interpretation of an: EKG (sinus 80 RBBB, no st or twave changes), Plain X-Ray (no infiltrate) and CT Scan (brain: atrophy) Independent Historian Clinical information obtained from an independent historian. History obtained from or confirmed by: Other (daughter) Chronic Conditions Patient?s care impacted by: Hypertension and Other (dementia) Discharge Plan Discharge Clinical Impression: Urinary tract infection Patient Disposition: Admitted As Inpatient
[2022-12-22 15:14] VITALS: BP 114/64; PULSE 88; RESP 14; TEMP 36.8; O2SAT 97; BMI 19.8
--- NOTE | 2022-12-22 15:19 | ECG_ITS ---
Test Reason : WEAKNESS/DIZZNESS Blood Pressure : / mmHG Vent. Rate : 077 BPM Atrial Rate : 077 BPM P-R Int : 168 ms QRS Dur : 088 ms QT Int : 372 ms P-R-T Axes : 096 033 033 degrees QTc Int : 420 ms Normal sinus rhythm with sinus arrhythmia Septal infarct , age undetermined Abnormal ECG No previous ECGs available Referred By: [place] Electronically Signed By:CANDIDO WONG MD
[2022-12-22 20:00] LABS: Appearance Urine Cloudy; Color Urine Yellow; Glucose Urine UA Negative (Negative); Leukocyte Esterase Urine Large (3+) (Negative); Nitrite Urine Negative (Negative); UMIC TRIGGER UACC YES; Urine Blood Moderate (2+) (Negative); Urine Ketones Negative (Negative); Urine Protein 100 (2+) mg/dL (Neg-Trace)
[2022-12-22 20:16] LABS: Bacteria Urine 4+ (None Seen); Hyaline Casts Urine >20 /LPF (0-2); UACC Culture Trigger YES; WBC Urine >50 /HPF (0-5)
[2022-12-22 22:52] LABS: Basophils Percent Auto 0.3 % (0-2); Eosinophils Percent Auto 0.3 % (0-4); Hematocrit 36.8 % (37.0-47.0); Hemoglobin 12.4 g/dl (12.0-16.0); Imm Gran Abs Auto 0.04 X10*3/uL (0.00-0.03); Imm Gran Pct Auto 0.6 % (0.0-0.4); Lymphocytes Absolute Auto 0.8 X10*3/uL (1.2-4.9); Lymphocytes Percent Auto 11.2 % (20-40); MANUAL DIFF FLAG NO; Mean Corpuscular HGB Conc 33.7 g/dl (31.0-35.0); Mean Corpuscular Hemoglobin 32.5 pg (27.0-33.0); Mean Corpuscular Volume 96.6 fL (80.0-98.0); Mean Platelet Volume 9.1 fL (9.4-12.3); Monocytes Absolute Auto 1.2 X10*3/uL (0.1-1.2); Monocytes Percent Auto 15.8 % (2-11); Neutrophils Absolute Auto 5.2 x10*3/uL (2.0-8.3); Neutrophils Percent Auto 71.8 % (45-73); Platelet Count 150 X10*3/uL (160-400); Red Blood Count 3.81 X10*6/uL (4.20-5.50); White Blood Count 7.3 X10*3/uL (4.8-10.8)
[2022-12-22 23:04] LABS: INTERNATIONAL NORM RATIO 1.2 (0.9-1.1); Prothrombin Time 14.2 SEC (10.0-13.1)
[2022-12-22 23:07] LABS: Alanine Aminotransferase 229 U/L (0-31); Albumin Level 3.6 g/dL (3.5-5.0); Alkaline Phosphatase 182 U/L (39-117); Anion Gap 13 (12-20); Aspartate Amino Transferase 112 U/L (5-31); Bilirubin Direct 0.3 mg/dL (0.0-0.5); Bilirubin Total 0.6 mg/dL (0.0-1.0); Blood Urea Nitrogen 19 mg/dL (9-16); Calcium 9.2 mg/dL (8.4-10.2); Carbon Dioxide 26 mmol/L (22-29); Chloride 96 mmol/L (96-108); Creatinine Clr Calc Pharmacy 38.3; Estimated Glomerular Filt Rate > 60; Glucose Random 102 mg/dL (60-115); Magnesium 2.3 mg/dL (1.6-2.6); Potassium 4.3 mmol/L (3.3-5.1); Sodium 131 mmol/L (135-145); Total Protein 6.6 g/dL (6.5-8.0)
[2022-12-22 23:13] LABS: Troponin-I High Sensitivity 5.9 ng/L (<3.5-17.0)
[2022-12-22] MEDS: 0.9 % Sodium Chloride 1,000 ML 500 ML IVCONT (23:14)
[2022-12-22 23:23] VITALS: BP 120/62; PULSE 79; RESP 16; TEMP 37; O2SAT 97
[2022-12-23] VITALS (11 sets, daily range): BP systolic 94–121; BP diastolic 53–75; PULSE 74–108; RESP 12–20; TEMP 36.4–39.5; O2SAT 94–98; BMI 20.2
[2022-12-23] MEDS: Acetaminophen Supp 650 MG SUPP.RECT PR (02:44)
--- NOTE | 2022-12-23 03:36 | MHC.EDTECH ---
This tech assumed care of pt at 0300, Vitals taken and pt had a rectal temp of 103.1, TRIXIE Arevalo was made aware and Md Stroud was made aware. Labs were drawn and sent to lab, Pt was placed on the lithographic plate maker and call booker within reach and family at bedside.
[2022-12-23 03:55] LABS: Appearance Urine Cloudy; Color Urine Yellow; Glucose Urine UA Negative (Negative); Leukocyte Esterase Urine Large (3+) (Negative); Nitrite Urine Positive (Negative); PH 6.5 (5.0-9.0); UMIC TRIGGER UACC YES; Urine Blood Small (1+) (Negative); Urine Ketones Negative (Negative); Urine Protein 30 (1+) mg/dL (Neg-Trace)
[2022-12-23 04:04] LABS: Lactic Acid 1.6 mmol/L (0.5-2.0)
[2022-12-23 04:07] LABS: Bacteria Urine 4+ (None Seen); Hyaline Casts Urine 0-2 /LPF (0-2); Squamous Epithelial Cell Urine 0-2 /HPF (0-2); UACC Culture Trigger YES; WBC Urine >50 /HPF (0-5)
[2022-12-23] MEDS: cefTRIAXone sodium 1 GM in 0.9 % Sodium Chloride 50 ML IV (05:33)
--- NOTE | 2022-12-23 05:43 | PM.IMHP ---
History of Present Illness Date of Service: 12/23/22 Chief Complaint: Generalized weakness, poor oral intake increased confusion 87-year-old female with past medical history of DVT, hyperlipidemia, recurrent UTIs comes into the hospital with family complaining of increased weakness, increased confusion, decreased p.o. intake, and just feeling very sleepy and wanting to sleep, having dizziness, nausea, episode of vomiting. Family is concerned that she may have another infection. Patient herself is awake, alert to self and month only, she keeps looking at her family to give history for her. She is unable to give me much history due to this confusion She denies all review of system including no headache, change in vision, no abdominal pain nausea or vomiting, no diarrhea constipation, no urinary symptoms and no lower extremity edema. On arrival to the ED patient found to have a fever of up to 103.1, heart rate of 108, Labs are significant for WBC count of 7.3, UA positive for nitrites, leukocyte Estrace, WBC, and bacteria, patient also has elevated transaminitis with AST of 112, ALT of 229, alk-phos of 182 Abdomen ultrasound shows mild fullness of the right renal pelvis, Patient started on antibiotics and will be admitted for further management Review of Systems Review of Systems: Yes all other systems are reviewed and are negative [facility] Medical History (Updated 12/23/22 @ 05:48 by Lakesha Cisneros MD) Blood clot in vein High cholesterol History of DVT (deep vein thrombosis) Recurrent UTI Surgical History (Updated 12/23/22 @ 05:47 by Lakesha Cisneros MD) No pertinent past surgical history Social History (Updated 12/23/22 @ 05:47 by Lakesha Cisneros MD) Alcohol intake: current Alcohol intake frequency: a few times a week Alcohol type: wine Patient Tobacco Use Status: Never used Tobacco Meds Allergies Allergy/AdvReac Type Severity Reaction Status Date / Time amoxicillin [From Augmentin] Allergy Flushing Verified 03/11/20 17:54 clavulanic acid Allergy Flushing Verified 03/11/20 17:54 [From Augmentin] Sulfa (Sulfonamide Allergy Unknown Verified 03/11/20 17:54 Antibiotics) Active Medications: Current Medications Acetaminophen (Acetaminophen 325 Mg Tablet) 650 mg PO Q6H PRN PRN Reason: Pain, Mild (Pain Scale 1-3) Docusate Sodium (Docusate Sodium 100 Mg Capsule) 100 mg PO DAILY PRN PRN Reason: Constipation Ceftriaxone Sodium 1 gm/ (Sodium Chloride) 50 mls @ 100 mls/hr IV Q24H [facility] Lactated Ringer's (Lr) 1,000 mls @ 80 mls/hr IVCONT .[id number] [facility] Ondansetron HCl (Ondansetron Hcl 4 Mg/2 Ml Vial) 4 mg IVPUSH Q8H PRN PRN Reason: Nausea and Vomiting Sodium Chloride (0.9 % Sodium Chloride Flush 3 Ml Syringe) 3 ml IVFLUSH QSHIFT [facility] Physical Exam Vital Signs and Narrative: Vital Signs: Last Vital Signs Temp 101.1 F H 12/23/22 05:14 Pulse 100 12/23/22 05:14 Resp 20 12/23/22 05:14 BP 106/56 L 12/23/22 05:14 Pulse Ox 95 12/23/22 05:14 O2 Del Method Room Air 12/23/22 05:14 BMI result Body Mass Index 19.8 Const: Other: Patient is oriented to self, month, year, but not place or information about her presentation General: cooperative and no acute distress Eyes: General: appearance normal, both eyes and all related structures Pupils: Equal, round and reactive pupils present Resp: Effort & Inspection: normal respiratory effort, able to speak in complete sentences and abnormal respiratory pattern Auscultation: clear to auscultation bilaterally Cardio: Rate: regular rate Rhythm: regular rhythm GI: Palpation (GI): Soft to palpation Auscultation: normal bowel sounds Skin: General skin exam: no rashes or lesions noted Neuro: Cranial nerves: Yes Equal, round and reactive pupils present Extrem: General: Yes normal to inspection and Yes no pedal edema Results Labs 12/22/22 22:47 12/22/22 22:47 Labs: Laboratory Results - last 24 hr 12/22/22 12/22/22 12/22/22 19:53 22:47 22:47 MCV 96.6 MCH 32.5 MCHC 33.7 RDW 13.0 Plt Count 150 L MPV 9.1 L Immature Gran % (Auto) 0.6 H Neut % (Auto) 71.8 Lymph % (Auto) 11.2 L Hud[place]eth % (Auto) 15.8 H Eos % (Auto) 0.3 Baso % (Auto) 0.3 Lymph # (Auto) 0.8 L [place] # (Auto) 1.2 Eos # (Auto) 0.0 Baso # (Auto) 0.0 Abs Immat Gran (auto) 0.04 H Absolute Neuts (auto) 5.2 Absolute Nucleated RBC 0.000 Nucleated RBC % (auto) 0.0 PT INR Anion Gap 13 Estim Creat Clear Calc 38.3 Estimated GFR > 60 Random Glucose 102 Lactic Acid Calcium 9.2 Magnesium 2.3 Total Bilirubin 0.6 Direct Bilirubin 0.3 AST 112 H ALT 229 H Alkaline Phosphatase 182 H Troponin I High Sens Total Protein 6.6 Albumin 3.6 Urine Color Yellow Urine Appearance Cloudy Urine pH 6.0 Ur Specific Monette 1.010 Urine Protein 100 (2+) H Urine Glucose (UA) Negative Urine Ketones Negative Urine Blood Moderate (2+) H Urine Nitrite Negative Ur Leukocyte Esterase Large (3+) H Urine RBC 6-10 H Urine WBC >50 H Ur Squamous Epith Cells 11-20 Urine Bacteria 4+ Hyaline Casts >20 12/22/22 12/22/22 12/23/22 22:47 22:47 03:45 MCV MCH MCHC RDW Plt Count MPV Immature Gran % (Auto) Neut % (Auto) Lymph % (Auto) Hudsp[place] % (Auto) Eos % (Auto) Baso % (Auto) Lymph # (Auto) [place]sp[place] # (Auto) Eos # (Auto) Baso # (Auto) Abs Immat Gran (auto) Absolute Neuts (auto) Absolute Nucleated RBC Nucleated RBC % (auto) PT 14.2 H INR 1.2 H Anion Gap Estim Creat Clear Calc Estimated GFR Random Glucose Lactic Acid 1.6 Calcium Magnesium Total Bilirubin Direct Bilirubin AST ALT Alkaline Phosphatase Troponin I High Sens 5.9 Total Protein Albumin Urine Color Urine Appearance Urine pH Ur Specific Monette Urine Protein Urine Glucose (UA) Urine Ketones Urine Blood Urine Nitrite Ur Leukocyte Esterase Urine RBC Urine WBC Ur Squamous Epith Cells Urine Bacteria Hyaline Casts 12/23/22 03:45 MCV MCH MCHC RDW Plt Count MPV Immature Gran % (Auto) Neut % (Auto) Lymph % (Auto) [place]udsp[place] % (Auto) Eos % (Auto) Baso % (Auto) Lymph # (Auto) Hudspeth # (Auto) Eos # (Auto) Baso # (Auto) Abs Immat Gran (auto) Absolute Neuts (auto) Absolute Nucleated RBC Nucleated RBC % (auto) PT INR Anion Gap Estim Creat Clear Calc Estimated GFR Random Glucose Lactic Acid Calcium Magnesium Total Bilirubin Direct Bilirubin AST ALT Alkaline Phosphatase Troponin I High Sens Total Protein Albumin Urine Color Yellow Urine Appearance Cloudy Urine pH 6.5 Ur Specific Monette 1.010 Urine Protein 30 (1+) H Urine Glucose (UA) Negative Urine Ketones Negative Urine Blood Small (1+) H Urine Nitrite Positive H Ur Leukocyte Esterase Large (3+) H Urine RBC 3-5 H Urine WBC >50 H Ur Squamous Epith Cells 0-2 Urine Bacteria 4+ Hyaline Casts 0-2 Imaging Radiologist's Impressions: Impressions Head CT 12/22/22 15:42 IMPRESSION: * No acute intracranial pathology compared to 10/18/2022. 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 Chest X-Ray 12/22/22 15:48 IMPRESSION: No acute cardiopulmonary abnormality. Abdomen Ultrasound 12/23/22 01:37 IMPRESSION: Mild fullness of the right renal pelvis, of uncertain clinical significance. Otherwise no acute findings identified. Assessment and Plan (1) Acute UTI: Status: Acute (2) Febrile: Status: Acute Plan 87-year-old female past medical history of DVT and recurrent UTI comes in with confusion and poor oral intake found to have acute UTI # acute UTI - febrile, with slightly low BP - will treat with IV antibiotics - follow cultures # febrile - Secondary to above - will treat with Tylenol p.r.n. - follow cultures # history of DVT - on Eliquis per family, pending med rec DVT prophylaxis: Eliquis Given patient's need for IV antibiotics patient will require minimum 2 nights inpatient hospital stay for further management and monitoring Time Spent With Patient Time: Total time managing care of this patient today ____ minutes. Quality Stroke Does the patient have a stroke diagnosis?: No VTE Prior VTE?: No VTE Risk Level:: Medical - moderate - high VTE Device Contraindication: Treatment Not Indicated VTE Drug Contraindication: N/A - Med Ordered
[2022-12-23 06:08] LABS: Basophils Percent Auto 0.4 % (0-2); Eosinophils Percent Auto 0.1 % (0-4); Hematocrit 35.5 % (37.0-47.0); Hemoglobin 12.1 g/dl (12.0-16.0); Imm Gran Abs Auto 0.08 X10*3/uL (0.00-0.03); Lymphocytes Absolute Auto 0.4 X10*3/uL (1.2-4.9); Lymphocytes Percent Auto 5.1 % (20-40); MANUAL DIFF FLAG NO; Mean Corpuscular HGB Conc 34.1 g/dl (31.0-35.0); Mean Corpuscular Hemoglobin 32.9 pg (27.0-33.0); Mean Corpuscular Volume 96.5 fL (80.0-98.0); Mean Platelet Volume 9.3 fL (9.4-12.3); Monocytes Absolute Auto 0.7 X10*3/uL (0.1-1.2); Monocytes Percent Auto 8.7 % (2-11); Neutrophils Absolute Auto 6.5 x10*3/uL (2.0-8.3); Neutrophils Percent Auto 84.7 % (45-73); Platelet Count 152 X10*3/uL (160-400); Red Blood Count 3.68 X10*6/uL (4.20-5.50); White Blood Count 7.6 X10*3/uL (4.8-10.8)
[2022-12-23] MEDS: Lactated Ringers 1,000 ML 80 ML IVCONT ×2 (06:11→20:57)
[2022-12-23 06:25] LABS: Anion Gap 13 (12-20); Blood Urea Nitrogen 17 mg/dL (9-16); Carbon Dioxide 25 mmol/L (22-29); Chloride 102 mmol/L (96-108); Creatinine Clr Calc Pharmacy 39.2; Estimated Glomerular Filt Rate > 60; Glucose Random 113 mg/dL (60-115); Potassium 4.7 mmol/L (3.3-5.1); Sodium 135 mmol/L (135-145)
--- NOTE | 2022-12-23 07:08 | PC.NURSE ---
attempted two PO meds, patient was unable to swallow.MD aware. Requested rectal or liquid medication for fever
--- NOTE | 2022-12-23 08:59 | PM.EVENT ---
Event Note Date of Service: 12/23/22 Event Note: pt seen/examined. A/P per h and p from this morning, d/w family at bedside, swallow eval before diet Time Spent With Patient Time: Total time managing care of this patient today ____ minutes.
--- NOTE | 2022-12-23 09:17 | PC.NURSE ---
pt a&ox2. respirations even and unlabored. pt skin warm pink and dry. pt denies pain. this RN repositioned pt and changed linens. vss.
--- NOTE | 2022-12-23 10:20 | PHA.MEDREC ---
Pharmacy Consult ? Medication Reconciliation Pharmacy has completed the medication reconciliation. Spoke to patient's daughter to confirm meds.
--- NOTE | 2022-12-23 10:21 | PC.NURSE ---
speech therapy at bedside for eval
--- NOTE | 2022-12-23 11:54 | MHC.SL.SWA ---
Speech Pathologist Impression: Risk of Aspiration Due to: Medically Fragile Dysphasia Diet Status: Liquid Consistency and Strategies for Safe Swallow: Liquid Intake Recommendation: Thin Liquid Intake Strategies: Small Sips Solid Food Consistency: Dietary Recommendations: Regular Additional Modifications to Solid Foods: Patient is able to independently self-feed. Patient is encouraged to periodically clear throat and res-wallow, particularly with sensation of residual. Alternate liquids and solids. Avoid food that are difficult to chew, or crunchy/dry. Oral Medication Intake: Whole with Liquid Please contact the pharmacy regarding appropriate crushable or liquid drug formulations that are available whenever modified delivery is recommended. Compensatory Strategies and Precautions to be Taken for Safe Swallow: Sitting Upright (90 deg) Double Swallow Liquids from Cup Liquids from Straw Small Bites and Sips Alternate Liquids/Solids Supervision While Eating and Drinking for Safe Swallow: None Needed Foods to Avoid: Avoid food that are difficult to chew, or crunchy/dry or acidic. Swallowing Recommended Treatments: Compens. Strategy Educat. Recommendation for Speech: Inpatient Speech Therapy Comment: Patient present with mild pharyngeal phase dysphagia, likely secondary to hiatal hernia. All aspects of oral motor function WFL. Patient was instructed with strategies of: Alternate liquids and solids, periodically clear throat or cough and re-swallow, double swallow on puree consistencies or more viscous liquids. Recommend continue on current diet of REGULAR with THIN liquids, pills whole with liquid. Recommend f/u X1 by rectification printer for toleration of diet, reinforcement of swallowing strategies. MELY RAVI notified of recommendation by secure text, RN in person. Frequency/Duration: Date Range for Service Req: Timeline to reassess: Pipe Bender Clinican/Clinical Fellow: No Supervisory Statement: I have reviewed and agree with the student/clinical fellow's documentation: N/A Speech Language Pathologist: Judi Sparks M.A., [facility]
[2022-12-23] MEDS: Omeprazole 20 MG CAPSULE.DR PO (12:20)
[2022-12-23] MEDS: Apixaban 5 MG TABLET PO ×2 (12:20→20:58)
[2022-12-23] MEDS: polyethylene glycoL 3350 17 GM POWD.PACK PO (12:21)
[2022-12-23] MEDS: Docusate Sodium 100 MG CAPSULE PO (12:21)
--- NOTE | 2022-12-23 17:40 | PC.NURSE ---
pt removed IV, new access established left wrist, LR restarted.
--- NOTE | 2022-12-23 18:20 | PC.NURSE ---
report given to nurse on S3.
--- NOTE | 2022-12-23 18:21 | MHC.EDTECH ---
PATIENT BELONGINGS LIST DONE ,AND PATIENT WAS GIVEN DINNER ,PATIENT HAS A BED ON MED SURGE WAITING TO BE TRANSPORTED .
[2022-12-23] MEDS: Acetaminophen 325 MG TABLET 650 MG PO (20:58)
[2022-12-23] MEDS: Famotidine 20 MG TABLET PO (20:58)
[2022-12-23] MEDS: Docusate Sodium 100 MG CAPSULE 200 MG PO (20:58)
[2022-12-24 03:32] VITALS: BP 128/79; PULSE 68; RESP 16; TEMP 36; O2SAT 94
[2022-12-24] MEDS: Omeprazole 20 MG CAPSULE.DR PO ×2 (05:34→05:40)
[2022-12-24] MEDS: cefTRIAXone sodium 1 GM in 0.9 % Sodium Chloride 50 ML IV (05:34)
[2022-12-24] MEDS: Lactated Ringers 1,000 ML 80 ML IVCONT (05:34)
[2022-12-24] MEDS: Docusate Sodium 100 MG CAPSULE PO (07:22)
[2022-12-24] MEDS: Apixaban 5 MG TABLET PO ×2 (07:22→20:04)
[2022-12-24] MEDS: polyethylene glycoL 3350 17 GM POWD.PACK PO (07:22)
[2022-12-24 08:00] VITALS: BP 114/54; PULSE 94; RESP 18; TEMP 36.1; O2SAT 97
--- NOTE | 2022-12-24 10:14 | MHC.CM.PN ---
Patient is here with increased Confusion; CM spoke with Daughter/HCP/Katy and addressed IMM with her (original will be mailed certified letter to Katy and a copy will be placed on the chart). Patient use a walker and she lives alone on the first floor of a duplex with Katy living on the second floor. Home self care vs new VNA is the tentative plan and CM has initiated and will follow for dc planning. Patient is seema english'ruben x4 and her PCP is Dr. Nedra Sanford.
--- NOTE | 2022-12-24 13:00 | HO.PM.IMPN ---
Subjective Subjective Date of Service: 12/24/22 Interval History: seen and examined this morning follow up for cellulitis awake, alert, well appearing; pain under adequate control no fever or chills Review of Systems Review of Systems: Yes all other systems are reviewed and are negative Constitutional Constitutional: Denies chills and Denies fever(s) Cardiovascular Cardiovascular: Denies chest pain, Denies palpitations and Denies dyspnea Respiratory Respiratory: Denies cough and Denies dyspnea Gastrointestinal Gastrointestinal: Denies abdominal pain, Denies nausea and Denies vomiting Endocrine Endocrine: Denies palpitations Physical Exam Vital Signs: Vital Signs: Last Vital Signs Temp 97 F 12/24/22 08:00 Pulse 94 12/24/22 08:00 Resp 18 12/24/22 08:00 BP 114/54 L 12/24/22 08:00 Pulse Ox 97 12/24/22 08:00 O2 Del Method Room Air 12/24/22 08:00 BMI result Body Mass Index 20.2 Const: General: cooperative, comfortable, no acute distress, alert and awake Nutritional Appearance: average body habitus HEENT: Head: Yes normocephalic and Yes atraumatic Resp: Effort & Inspection: normal respiratory effort, no respiratory distress and no use of accessory muscles Cardio: Rate: regular rate Heart sounds: S1 normal heart sound present and S2 normal heart sound present GI: Inspection: No distended Palpation (GI): Soft to palpation and nontender Extrem: General: Yes no pedal edema Objective Data Active Medications Acetaminophen (Acetaminophen 325 Mg Tablet) 650 mg PO Q6H PRN PRN Reason: Pain, Mild (Pain Scale 1-3) Last Admin: 12/23/22 20:58 Dose: 650 mg Documented By: LENA Acetaminophen (Acetaminophen Supp 650 Mg Supp.Rect) 650 mg MD Q6H PRN PRN Reason: Pain, Moderate(Pain Scale 4-6) Apixaban (Apixaban 5 Mg Tablet) 5 mg PO BID [facility] Last Admin: 12/24/22 07:22 Dose: 5 mg Documented By: JENIFER Docusate Sodium (Docusate Sodium 100 Mg Capsule) 100 mg PO DAILY PRN PRN Reason: Constipation Docusate Sodium (Docusate Sodium 100 Mg Capsule) 100 mg PO DAILY [facility] Last Admin: 12/24/22 07:22 Dose: 100 mg Documented By: JENIFER Docusate Sodium (Docusate Sodium 100 Mg Capsule) 200 mg PO BEDTIME [facility] Last Admin: 12/23/22 20:58 Dose: 200 mg Documented By: LENA Famotidine (Famotidine 20 Mg Tablet) 20 mg PO BEDTIME [facility] Last Admin: 12/23/22 20:58 Dose: 20 mg Documented By: LENA Ceftriaxone Sodium 1 gm/ (Sodium Chloride) 50 mls @ 100 mls/hr IV Q24H [facility] Last Infusion: 12/24/22 06:07 Dose: 0 mls/hr Documented By: LENA Lactated Ringer's (Lr) 1,000 mls @ 80 mls/hr IVCONT .[id number] [facility] Last Admin: 12/24/22 05:34 Dose: 80 mls/hr Documented By: LENA Omeprazole (Omeprazole 20 Mg Capsule.Dr) 20 mg PO DAILY@0630 [facility] Last Admin: 12/24/22 05:40 Dose: 20 mg Documented By: LENA Ondansetron HCl (Ondansetron Hcl 4 Mg/2 Ml Vial) 4 mg IVPUSH Q8H PRN PRN Reason: Nausea and Vomiting Pharmacy Consult (Consult Rx Perform Med Rec) 1 each MISCELLANE ONCE PRN PRN Reason: Consult order Polyethylene Glycol (Polyethylene Glycol 3350 17 Gm Powd.Pack) 17 gm PO DAILY [facility] Last Admin: 12/24/22 07:22 Dose: 17 gm Documented By: JENIFER Sodium Chloride (0.9 % Sodium Chloride Flush 3 Ml Syringe) 3 ml IVFLUSH QSHIFT [facility] Last Admin: 12/24/22 07:31 Dose: Not Given Documented By: JENIFER Non-Admin Reason: IV Running Labs 12/23/22 05:49 12/23/22 05:49 Microbiology Microbiology Results: Microbiology 12/23/22 02:14 Blood Culture - Preliminary Blood - Venous Gram negative humberto 12/22/22 Unknown Urine Culture - Final Urine clean catch - Urine champagne top Escherichia coli 12/23/22 03:04 Blood Culture - Preliminary Blood - Venous No growth after 24 hours. Assessment and Plan (1) Acute UTI: Status: Acute (2) Cellulitis: Status: Acute (3) Elevated LFTs: Status: Acute Plan 87-year-old female past medical history of DVT, dementia and recurrent UTI comes in with confusion and poor oral intake found to have acute UTI GNR bacteremia likely secondary to UTI 1/2 blood cultures growing GNR - follow final culture results, likely e.coli as urine culture growing E coli sensitive to ceftriaxone continue IV ceftriaxone follow final blood culture results acute toxic encephalopathy on a background of dementia unspecified likely related to acute infection, remains confused, improved but not quite back to baseline per son at bedside transaminitis AST 112, ALT 229 - no previous labs available for baseline no abdominal pain abdominal US without acute GB/liver pathology to account for elevation of LFTs thrombocytopenia, unclear chronicity platelets remained stable mild hyponatremia likely r/t dehydration resolved with IVF dysphagia seen by speech recommend regular diet tolerating current diet history of DVT on Eliquis per family gerd continue famotidine, omeprazole mood desvenlafaxine NF - will need to be brought from home chronic pain continue home dose of ultram prn DVT prophylaxis: Jenny attending - dr. Saenz requires ongoing inpatient hospitalization for management of bacteremia/ UTI requiring IV antibiotics Time Spent With Patient Time: Total time managing care of this patient today ____ minutes. Quality Stroke Does the patient have a stroke diagnosis?: No VTE Prior VTE?: No VTE Risk Level:: Medical - moderate - high VTE Device Contraindication: Treatment Not Indicated VTE Drug Contraindication: N/A - Med Ordered
[2022-12-24 14:27] LABS: Alanine Aminotransferase 185 U/L (0-31); Albumin Level 3.2 g/dL (3.5-5.0); Alkaline Phosphatase 181 U/L (39-117); Aspartate Amino Transferase 84 U/L (5-31); Bilirubin Direct 0.7 mg/dL (0.0-0.5); Bilirubin Total 0.8 mg/dL (0.0-1.0); Total Protein 5.9 g/dL (6.5-8.0)
[2022-12-24 15:27] VITALS: BP 117/67; PULSE 78; RESP 16; TEMP 36.6; O2SAT 97
[2022-12-24 20:00] VITALS: BP 120/62; PULSE 65; RESP 17; TEMP 36.4; O2SAT 95
[2022-12-24] MEDS: Famotidine 20 MG TABLET PO (20:04)
[2022-12-24] MEDS: Docusate Sodium 100 MG CAPSULE 200 MG PO (20:04)
[2022-12-24] MEDS: 0.9 % Sodium Chloride Flush 3 ML SYRINGE IVFLUSH (20:05)
[2022-12-25 04:00] VITALS: BP 138/66; PULSE 76; RESP 18; TEMP 36.6; O2SAT 97
[2022-12-25] MEDS: Omeprazole 20 MG CAPSULE.DR PO (06:00)
[2022-12-25] MEDS: cefTRIAXone sodium 1 GM in 0.9 % Sodium Chloride 50 ML IV (06:00)
[2022-12-25 07:22] VITALS: BP 140/73; PULSE 78; RESP 16; TEMP 36.3; O2SAT 96
[2022-12-25] MEDS: polyethylene glycoL 3350 17 GM POWD.PACK PO (07:58)
[2022-12-25] MEDS: Apixaban 5 MG TABLET PO (07:58)
[2022-12-25] MEDS: Docusate Sodium 100 MG CAPSULE PO (07:58)
[2022-12-25] MEDS: 0.9 % Sodium Chloride Flush 3 ML SYRINGE IVFLUSH (08:03)
[2022-12-25 10:18] VITALS: BP 140/73; PULSE 78; O2SAT 96
--- NOTE | 2022-12-25 12:43 | PM.DS ---
DS: Providers Provider Date of Service: 12/25/22 Date of admission: 12/23/22 04:57 Primary care physician: Nedra Sanford MD DS: Diagnosis Discharge Diagnosis (1) Acute UTI: Status: Acute (2) Cellulitis: Status: Acute (3) Elevated LFTs: Status: Acute DS: Summary Hospital Course Hospital Course: history and physical as per admitting provider. 87-year-old female with past medical history of DVT, hyperlipidemia, recurrent UTIs comes into the hospital with family complaining of increased weakness, increased confusion, decreased p.o. intake, and just feeling very sleepy and wanting to sleep, having dizziness, nausea, episode of vomiting.? Family is concerned that she may have another infection. Patient herself is awake, alert to self and month only, she keeps looking at her family to give history for her.? She is unable to give me much history due to this confusion She denies all review of system including no headache, change in vision, no abdominal pain nausea or vomiting, no diarrhea constipation, no urinary symptoms and no lower extremity edema.?On arrival to the ED patient found to have a fever of up to 103.1, heart rate of 108, Labs are significant for WBC count of 7.3, UA positive for nitrites, leukocyte Estrace, WBC, and bacteria, patient also has elevated transaminitis with AST of 112, ALT of 229, alk-phos of 182 Abdomen ultrasound shows mild fullness of the right renal pelvis, Patient started on antibiotics and will be admitted for further management 87-year-old woman treated for E coli bacteremia and E coli UTI. She initially presented with acute toxic metabolic encephalopathy secondary to UTI. Her mental status improved significantly and at this point is back to her baseline. Her son has been present at the bedside, he reported that the patient is taking care of by his sister and himself so she has good supports at home. She was treated with IV rocephin while inpatient and will go home with Ceftin to complete a total of 14 days of antibiotics. She also had noted transaminitis that also resolved, abdominal ultrasound without any signs of cholecystitis or liver pathology. Possibly related to infection and dehydration. At this point patient is safe for discharge with physical therapy. Thrombocytopenia. Unclear chronicity. Platelets remained stable during admission History of DVT. Continue Eliquis GERD. Continue PPI Mental health. desvenlafaxine? Chronic pain. Continue Ultram Time Spent with Patient Time attestation: Total time managing care of this patient today ____ minutes. Discharge coordination time: Greater than 30 minutes Quality: Safe Use of Opioids Does Pt have an Active Cancer Diagnosis on the Problem List?: No Quality: Stroke Does the patient have a stroke diagnosis?: No Physical Exam Vital Signs: Vital Signs: Last Vital Signs Temp 97.3 F 12/25/22 07:22 Pulse 78 12/25/22 10:18 Resp 16 12/25/22 07:22 BP 140/73 H 12/25/22 10:18 Pulse Ox 96 12/25/22 10:18 O2 Del Method Room Air 12/25/22 07:22 BMI result Body Mass Index 20.2 Appearing in no acute distress head is normocephalic atraumatic eyes pupils are PERRLA sclera is anicteric mouth throat mucous membranes are intact and moist neck is supple no lymphadenopathy, no JVD noted lung sounds are clear to auscultation heart regular rate rhythm, clear S1, S2 positive bowel sounds, abdomen is soft, nontender neuro patient is alert x3, no focal deficits DS: Data Data Completed and Pending Labs on day of discharge: Laboratory Results - last 24 hr 12/23/22 05:49 Total Bilirubin 0.8 Direct Bilirubin 0.7 H AST 84 H ALT 185 H Alkaline Phosphatase 181 H Total Protein 5.9 L Albumin 3.2 L Preliminary micro results at discharge 12/23/22 03:04 Blood Culture - Preliminary Blood - Venous No growth after 48 hours. Discharge Plan Discharge Anticipated Discharge Date/Time: 12/25/22 12:38 Patient Disposition: Home Health Service Discharge Diagnosis: E coli bacteremia E coli UTI toxic metabolic encephalopathy Transaminitis Hyponatremia Dysphagia Referrals: [facility] [Other] - 1 Week Nedra Sanford MD [Primary Care Provider] - 1 Week Discharge Medications: New cefuroxime axetil 500 mg tablet 500 mg PO BID Qty: 24 0RF Continued acetaminophen [Tylenol] 325 mg Tablet 650 mg PO Q6H PRN (Reason: Pain) polyethylene glycol 3350 [Miralax] 17 gram Powder In Packet 17 g PO DAILY tramadol 50 mg tablet 50 mg PO QID PRN (Reason: Pain) famotidine 20 mg Tablet 20 mg PO BEDTIME docusate sodium 100 mg Capsule 200 mg PO BEDTIME docusate sodium 100 mg Capsule 100 mg PO DAILY omeprazole 20 mg capsule,delayed release(DR/EC) 20 mg PO DAILY calcium carbonate-vitamin D3 [Calcium 600 + D(3)] 600 mg-10 mcg (400 unit) Tablet 1 tab PO BID desvenlafaxine succinate 100 mg tablet extended release 24 hr 100 mg PO DAILY Eliquis 5 mg tablet 5 mg PO BID Discharge Orders: Discharge Order (Routine); Ordered 12/25/22 Ordered By: Sakina Carlos Diet: Advance to usual diet Activity on Discharge: As tolerated Stand Alone Forms: Patient Portal Discharge page Care Plan Goals: complete resolution of symptoms Health Concerns: E coli bacteremia E coli UTI toxic metabolic encephalopathy Transaminitis Hyponatremia Dysphagia Plan of Treatment: Tollow-up with primary care provider as needed Take all medications as prescribed Assessment: see discharge summary
--- NOTE | 2022-12-25 12:46 | MHC.CM.PN ---
pt dcd home with family support no sklled servceis ordered by
--- NOTE | 2022-12-25 13:01 | MHC.CM.PN ---
pt being dcd home w/[facility] for home pt
--- NOTE | 2022-12-25 14:56 | P.F2F_ITS ---
Service Date Service Date: 12/25/22 Encounter Date of encounter: 12/25/22 Reasons for Services Signs and symptoms assessed: UTI, Sepsis Reason for physical therapy: home safety and mobility Homebound: Leaving the home is medically contraindicated at this time without the asist of a device and/or another person due th the listed conditions above and below. Reason homebound: unsteady gait / fall risk Certification: Based on the above findings, I certify that this patient is confined to the home and needs intermittent residential care, physical therapy and/or speech therapy, or continues to need occupational therapy. The patient is under my care, and I have initiated the establishment of the plan of care. The patient will be followed by a physician who will periodically review the plan of care. Time Spent With Patient Time: Total time managing care of this patient today ____ minutes.
== END 2022-12-25 15:19 | disposition home health service (06) | DRG 689 ==
LOC: HO.ED 12-23 04:27 → HO.EDOVER 12-23 05:03 → HO.S3 12-23 18:05
PROVIDERS: Physician Assistant; Physician Assistant Medical; Admitting Provider Internal Medicine; Emergency Provider Emergency Medicine; PCP Family Medicine; Visit Provider Nurse Practitioner Acute Care
DX: N39.0 Urinary tract infection, site not specified (principal); G92.8 Other toxic encephalopathy; E87.1 Hypo-osmolality and hyponatremia; R78.81 Bacteremia; E78.00 Pure hypercholesterolemia, unspecified; F03.90 Unspecified dementia, unspecified severity, without behavioral disturbance, psychotic disturbance, mood disturbance, and anxiety; D69.6 Thrombocytopenia, unspecified; R13.10 Dysphagia, unspecified; K21.9 Gastro-esophageal reflux disease without esophagitis; G89.29 Other chronic pain; E86.0 Dehydration; B96.20 Unspecified Escherichia coli [E. coli] as the cause of diseases classified elsewhere; Z87.440 Personal history of urinary (tract) infections; Z86.718 Personal history of other venous thrombosis and embolism; Z79.01 Long term (current) use of anticoagulants; Z79.899 Other long term (current) drug therapy
CPT/HCPCS: 36415; 70450; 71046; 76705; 80048; 80076; 81001; 81003; 83605; 83735; 84484; 85025; 85610; 87040; 87077; 87086; 87088; 87186; 87205; 92610; 93005; 97162; 99285; J0696

== ENCOUNTER → 2022-12-22 15:19 | Outpatient (BNV) | payer MEDICARE, OTHER, SELFPAY | PROVIDERS: Admitting Provider Internal Medicine; Emergency Provider Emergency Medicine; PCP Family Medicine; Visit Provider Internal Medicine Cardiovascular Disease | DX: I47.1 Supraventricular tachycardia (principal) | CPT/HCPCS: 93010 ==

== ENCOUNTER → 2022-12-23 04:57 | Outpatient (BNV) | payer MEDICARE, OTHER, SELFPAY | PROVIDERS: Admitting Provider Internal Medicine; Emergency Provider Emergency Medicine; PCP Family Medicine; Visit Provider Internal Medicine | DX: N39.0 Urinary tract infection, site not specified (principal); L03.90 Cellulitis, unspecified; R74.01 Elevation of levels of liver transaminase levels | CPT/HCPCS: 99223; 99233; 99239; 99499; G0180 ==